=== PATIENT | female | born 1990 | race Asian ===

== ENCOUNTER → 2024-07-12 | Outpatient (CLI) | payer BC, SELFPAY ==
[2024-07-12 12:34] LABS: Absolute Lymphocyte Count 1.33 X10^3/uL (0.83-4.51); Absolute Neutrophil Count 3.2 X10^3/uL (2.0-7.7); Basophil# 0.06 X10^3/uL; Basophil% 1.1 % (0-1); Eosinophil# 0.29 X10^3/uL; Eosinophils% 5.5 % (0-5); Hematocrit 36.2 % (37-47); Lymphocyte # 1.33 X10^3/ul (0.83-4.51); Lymphocyte % 25.4 % (19-41); Mean Corp Hgb Conc 33.1 g/dL (32-36); Mean Corpuscular Hgb 28.9 pg (27.0-32.0); Mean Corpuscular Volume 87.2 fL (81-99); Mean Platelet Vol. 10.1 fl (6.2-12.0); Monocyte# 0.38 X10^3/uL; Monocyte% 7.3 % (0-10); NRBC Flagged by Analyzer 0 % (0-5); Neutrophil # 3.17 X10^3/uL (2.7-7.7); Neutrophil % 60.7 % (47-70); Platelet Count 305 K/mm3 (150-450); RBC Distribution Width CV 12.4 % (11.6-14.6); RBC Distribution Width SD 39.7 fl (35.1-43.9); Red Blood Count 4.15 M/mm3 (4.2-5.4); White Blood Count 5.2 K/mm3 (4.4-11.0)
[2024-07-12 13:43] LABS: ALB/GLOB Ratio 1.3 RATIO (0.9-2.4); AST(SGOT) 17 U/L (<=31); Alanine Aminotransfer ALT/SGPT 10 U/L (<=34); Albumin, Serum 4.1 g/dL (3.5-5.0); Alkaline Phosphatase 62 U/L (35-104); Anion Gap 10 (5-15); BUN 8 mg/dL (4-19); BUN/Creat Ratio 12.3 RATIO (10-20); Calcium,Total 9.5 mg/dL (7.6-11.0); Carbon Dioxide 23.9 mmol/L (21.0-32.0); Chloride 104 mmol/L (98-108); Cholesterol 185 mg/dL (<=200); Creatinine, Serum 0.68 mg/dL (0.70-1.20); EST Glomerular Filtration Rate 116 (>60); Globulin 3.1 g/dL (2.2-4.2); Glucose 90 mg/dL (70-99); High Density Lipoprotein 36 mg/dL; Low Density Lipoprotein Calc. 117 mg/dL; Potassium 4.1 mmol/L (3.3-5.1); Protein, Total 7.2 g/dL (5.9-8.4); Sodium Level 139 mmol/L (133-145); Total Bilirubin 0.31 mg/dL (0.00-1.30); Triglycerides 161 mg/dL; Very Low Density Lipoprotein 32 mg/dL (5-40); cholesterol:hdl ratio screen 5.17
== END | disposition home or self-care (01) ==
LOC: MFPLAB 10:54
PROVIDERS: PCP Family Medicine; Referring Provider Family Medicine; Visit Provider Family Medicine
DX: Z00.00 Encounter for general adult medical examination without abnormal findings (principal); R10.13 Epigastric pain
CPT/HCPCS: 36415; 80053; 80061; 84443; 85025

== ENCOUNTER → 2025-01-01 | Outpatient (CLI) | payer BC, SELFPAY ==
--- OUTSIDE RECORDS SUMMARY | 2025-01-01 12:19 | XMS RPT_ITS | CCD ---
Author Organization [facility] Care Team Providers Care Grain Miller Helper Name Role Phone Unavailable Primary Care Provider Francesca Reynolds MD, Dr. Sanchez Primary Care Provider Rodolfo GAN, Dr. Sanchez Attending Provider Rodolfo GAN, Dr. Sanchez Referring Provider Unavailable Primary Care Provider UnavailDaniel Eldridge MD Primary Care Provider TIMEN, REYNALDO R Attending Unavailable SANGHI, VEDHA Referring Unavailable SANGHI, BRAINDHA Attending Unavailable ASHLEY TOPETE P Attending Unavailable ASHLEY TOPETE P Referring Unavailable ASHLEY TOPETE Referring Unavailable ASHLEY TOPETE Attending Unavailable Daniel Reynolds Primary Care Unavailable Antionette Lakhani Attending Unavailable Rodolfo, Daniel Referring Unavailable Daniel Reynolds Primary Care Unavailable Antionette Coombs Attending Unavailable Daniel Reynolds Referring Unavailable Rodolfo, Daniel Referring Unavailable Rodolfo, Daniel Attending Unavailable Rodolfo, Daniel Primary Care Unavailable Medications Current Medications Medication Drug Class(es) Dates Sig (Normalized) Sig (Original) amitriptyline hydrochloride 10 mg oral tablet (1 source) Tricyclic Antidepressant Start: 09-08-19 take 1 tablet by mouth once daily at bedtime amitriptyline (ELAVIL) 10 mg tablet Take 1 tablet by mouth daily at bedtime. 30 tablet 11 09/07/2024 Active iv contrast (will be provided with radiology test) (1 source) Start: 08-23-19 End: 08-24-19 inject 1 dose intravenously once iv contrast (will be provided with radiology test) Indications: New onset headache , Vision disturbance , Migraine with persistent visual aura , Tinnitus, bilateral , Tingling of face , Pulsatile tinnitus, right ear , Thunderclap headache , Atypical facial pain , Ear pain, bilateral MRI Brain Inject, intravenously, once for 1 dose.No IV access, insert saline lock prior to beginning of sedation, infusion, injection of imaging exam.Discontinue saline lock post exam. If Pt. has a central line or IVAD, may access for administration according to line specific nursing protocol.Once exam is complete flush line and de-access according to line specific nursing protocol in the MR contrast administration guidelines link 1 each 08/22/2024 08/23/2024 Active methylPREDNISolone (5 sources) Corticosteroid Start: 08-23-19 methylPREDNISolone (MEDROL, CONNOR,) 4 mg Dose-Pack Take as directed. 21 tablet 08/22/2024 Active Completed/Discontinued Medications Medication Drug Class(es) Dates Sig (Normalized) Sig (Original) bismuth subsalicylate 262 mg chewable tablet (5 sources) Bismuth Start: 06-21-2024 End: 08-11-2024 take 1 tablet by mouth four times daily bismuth subsalicylate (PEPTO-BISMOL) 262 mg chewable tablet Indications: Helicobacter pylori gastritis Take 1 tablet by mouth four times daily for 14 days. 56 tablet 06/21/2024 08/11/2024 Discontinued (Course of therapy completed) doxycycline hyclate 100 mg oral capsule (2 sources) Tetracycline-class Drug Start: 07-31-2024 End: 08-22-2024 take 1 capsule by mouth every twelve hours doxycycline hyclate (VIBRAMYCIN) 100 mg capsule Take 1 capsule by mouth every 12 hours. 07/31/2024 08/22/2024 Discontinued famotidine 40 mg oral tablet (2 sources) Histamine-2 Receptor Antagonist Start: 06-07-2024 End: 06-21-2024 famotidine (PEPCID) 40 mg tablet 06/07/2024 06/21/2024 Discontinued (Discontinued by Patient) hydrocortisone 25 mg/ml topical cream (2 sources) Corticosteroid Start: 06-07-2024 End: 08-22-2024 hydrocortisone 2.5 % cream 06/07/2024 08/22/2024 Discontinued metroNIDAZOLE 500 mg oral tablet (3 sources) Nitroimidazole Antimicrobial Start: 06-21-2024 End: 07-05-2024 take 1 tablet by mouth four times daily metroNIDAZOLE (FLAGYL) 500 mg tablet Indications: Helicobacter pylori gastritis Take 1 tablet by mouth four times daily for 14 days. 56 tablet 06/21/2024 07/05/2024 omeprazole 40 mg delayed release oral capsule (13 sources) Proton Pump Inhibitor Start: 06-21-2024 End: 08-22-2024 take 1 capsule by mouth twice daily omeprazole (PRILOSEC) 40 mg capsule Indications: gastroesophageal reflux disease Take 1 capsule by mouth two times a day for 14 days. 28 capsule 06/21/2024 08/22/2024 Discontinued Start: 06-15-2024 End: 09-13-2024 take 1 capsule by mouth once daily omeprazole (PRILOSEC) 20 mg capsule Indications: Epigastric pain , Gastroesophageal reflux disease without esophagitis Take 1 capsule by mouth once daily. 90 capsule 06/15/2024 08/22/2024 Discontinued tetracycline hydrochloride 500 mg oral capsule (8 sources) Tetracycline-class Antimicrobial Start: 06-21-2024 End: 08-22-2024 take 1 capsule by mouth four times daily tetracycline (SUMYCIN) 500 mg cap TAKE 1 CAPSULE BY MOUTH 4 TIMES DAILY FOR 14 DAYS 06/21/2024 08/22/2024 Discontinued Start: 06-21-2024 End: 07-05-2024 take 1 tablet by mouth four times daily Tetracycline HCl 500 mg tab Indications: Helicobacter pylori gastritis Take 500 mg by mouth four times daily for 14 days. 56 tablet 06/21/2024 07/05/2024 Problems Active Problems Problem Classification Problem Date Documented Da te Episodic/Chronic Abdominal pain (1 source) Epigastric pain; Translations: [Epigastric pain] 06-15-2024 Episodic Blindness and vision defects (16 sources) Visual disturbance; Translations: [Unspecified visual disturbance] Onset: 08-22-2024 Episodic Esophageal disorders (1 source) Gastroesophageal reflux disease without esophagitis; Translations: [Gastro-esophageal reflux disease without esophagitis] 06-15-2024 Chronic Gastrointestinal hemorrhage (1 source) Blood-tinged feces; Translations: [Melena] 06-15-2024 Episodic Headache; including migraine (17 sources) Migraine variants; Translations: [Other migraine, not intractable, without status migrainosus] Onset: 5 08-11-2024 Chronic Headache; including migraine (20 sources) Headache; Translations: [Thunderclap headache] Onset: 5 08-22-2024 Episodic Headache; including migraine (1 source) Headache; including migraine; Translations: [New onset headache] Onset: Other ear and sense organ disorders (3 sources) Referred otalgia of right ear; Translations: [Otalgia, right ear] 08-11-2024 Episodic Other ear and sense organ disorders (2 sources) Referred otalgia of left ear; Translations: [Otalgia, left ear] 08-11-2024 Episodic Other ear and sense organ disorders (2 sources) Tinnitus of right ear; Translations: [Tinnitus, right ear] 08-11-2024 Episodic Other ear and sense organ disorders (13 sources) Bilateral tinnitus; Translations: [Tinnitus, bilateral] Onset: 5 08-22-2024 Episodic Other ear and sense organ disorders (13 sources) Tinnitus of vascular origin; Translations: [Pulsatile tinnitus, right ear] Onset: 5 08-22-2024 Episodic Other ear and sense organ disorders (8 sources) Bilateral earache; Translations: [Otalgia, bilateral] 08-22-2024 Episodic Other ear and sense organ disorders (1 source) Pulsatile tinnitus, right ear; Translations: [Pulsatile tinnitus, right ear] Onset: 5 Episodic Other ear and sense organ disorders (1 source) Tinnitus, bilateral; Translations: [Tinnitus, bilateral] Onset: Episodic Other ear and sense organ disorders (1 source) Otalgia, bilateral; Translations: [Ear pain, bilateral] Onset: Episodic Other nervous system disorders (13 sources) Pins and needles; Translations: [Paresthesia of skin] Onset: 5 08-22-2024 Episodic Other nervous system disorders (8 sources) Atypical facial pain; Translations: [Atypical facial pain] 08-22-2024 Episodic Other nervous system disorders (1 source) Paresthesia of skin; Translations: [Tingling of face] Onset: Episodic Other nervous system disorders (1 source) Atypical facial pain; Translations: [Atypical facial pain] Onset: Episodic Past or Other Problems Problem Classification Problem Date Documented Da te Episodic/Chronic Bacterial infection; unspecified site (1 source) Helicobacter pylori [H. pylori] as the cause of diseases classified elsewhere; Translations: [Helicobacter pylori gastritis] Onset: 06-22-2024 Episodic Gastritis and duodenitis (2 sources) Helicobacter pylori-associated gastritis; Translations: [Gastritis, unspecified, without bleeding] Onset: 06-22-2024 06-21-2024 Episodic Other ear and sense organ disorders (1 source) Otalgia, right ear; Translations: [Referred otalgia of right ear] Onset: 08-11-2024 Episodic Other ear and sense organ disorders (1 source) Tinnitus, right ear; Translations: [Tinnitus, right ear] Onset: 08-11-2024 Episodic Other ear and sense organ disorders (1 source) Otalgia, left ear; Translations: [Referred otalgia of left ear] Onset: 08-11-2024 Episodic Other screening for suspected conditions (not mental disorders or infectious disease) (2 sources) Possible ; Translations: [Encounter for test, result unknown] Onset: 06-22-2024 06-21-2024 Episodic Results Test Name Value Interpretation Reference Range Facility Office Visit Reporton 2024 Office Visit Report [facility] [address] [place] [id number] OFFICE VISIT Date of Service: 12/22/24 MR#: [id number] Acct: [id number] Patient: CYDNEY SULLIVAN Rep #: [id number] : 1990 Provider: VALERIE Jean Baptiste ams Age/Sex: 34/F Location[place] [facility] [place] Status: Signed Intake Vital Signs 12/22/24 09:09 Weight: 136 lb 4 oz BP 102/70 Intake Visit Reasons: PNOB Vitals Education Allergies No Known Allergies Allergy (Unverified 12/22/24 08:16) Medications ???Medication ???Instructions ???Recorded ???Confirmed ???Type docosahexaenoic acid 200 mg mg PO 12/22/24 12/22/24 History capsule ( DHA) magnesium gluconate 30 mg tablet 30 mg PO QDAY 12/22/24 12/22/24 Hi story pyridoxine (vitamin B6) 10 mg 10 mg PO QDAY 12/22/24 12/22/24 Hi story tablet Is last menstrual period known: Yes Post menopausal: No Patient : Yes Nurse's Note: Pt here for secondary amenorrhea. Vitals WNL. PNOB questions completed. Problem list, allergies, and medications updated. First trimester ACOG education completed. Assessment and Plan Assessment and Plan Orders: Orders CBC W/Diff, Automated 01/01/25 Z34.90 - Encounter for supervision of normal , unspecified, unspecified trimester Type Screen 01/01/25 Z34.90 - Encounter for supervision of normal , unspecified, unspecified trimester Rubella IgG 01/01/25 Z34.90 - Encounter for supervision of normal , unspecified, unspecified trimester Hepatitis C Antibody 01/01/25 Z34.90 - Encounter for supervision of normal , unspecified, unspecified trimester Hepatitis B Surface Antigen 01/01/25 Z34.90 - Encounter for supervision of normal , unspecified, unspecified trimester Culture, Urine 01/01/25 Z34.90 - Encounter for supervision of normal , unspecified, unspecified trimester Syphilis Antibodies 01/01/25 Z34.90 - Encounter for supervision of normal , unspecified, unspecified trimester Chlamydia/GC KOSTA aptima 01/01/25 Z34.90 - Encounter for supervision of normal , unspecified, unspecified trimester HIV 01/01/25 Z34.90 - Encounter for supervision of normal , unspecified, unspecified trimester PAP IG HPV APTIMA 16/18,45 12/22/24 12/26/24 1228 Date Antionette MORRISON Cosignlaverne Signature: Date (if applicable) CC: Normal [facility] CNOVon 11-06-2024 CNOV Office Visit ([facility] ) CYDNEY SULLIVAN ([id number]) 1990 F Date Time Provider Department 11/06/24 11:00 AM ASHLEY TOPETE [facility] During your visit today, we recorded the following information about you: Pulse Respiration Blood pressure Weight 96/minute 18/minute 110/69 61.8 kg Height 1.626 m Ashley Topete, DO 11/06/2024 12:42 PM Signed [facility] - Follow-up Visit SSESSMENT: 34 year old female with history significant for persistent visual 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 She describes no other IIH type symptoms (denies pulsatile tinnitus, TVOs, or ongoing headaches) and I see no findings suggestive of IIH on review of her MRI, but we may consider checking opening pressure pending neuro-ophthalmology evaluation for her visual disturbances. PLAN: (Please see typed patient instructions for detailed instructions) ---> Preventive Treatment: -Lamictal trial. -Continue Magnesium. ---> Consult to neuro-ophthalmology for her complex visual disturbances. 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 ---> Discussed potential for future LP to check opening pressure, although overall symptoms and MRI findings do not suggest IIH. We may still consider this to definitively exclude it though. ---> Follow-up: 3 months. --------- Last visit: 08/22/24 Interval Headache Hx: Still has visual disturbances (shimmering) all the time. Sometimes a couple lines, sometimes a few spots. Has been weaning off Gabapentin. No help and had some swelling. Took 300 mg tid yesterday, none today. New Labs/Imaging: Impression IMPRESSION: No acute intracranial abnormality. No mass or pathologic enhancement. Patent intracranial cerebral arterial circulation. No high-grade flow-limiting luminal stenosis. Persistent primitive left trigeminal artery. Patent dural venous sinuses by [id number] MRV. Wireless Technician: LASHAY Transcribe Date/Time: 2024 9:53A Dictated by : PIEDAD DILLARD DO This examination was interpreted and the report reviewed and electronically signed by: PIEDAD DILLARD DO on 2024 10:19AM EST Results-Findings * * *Final Report* * * DATE OF EXAM: 2024 9:49AM [facility] 0295 - MRI BRAIN WO/W IVCON / PROCEDURE REASON: multiple diagnoses * * * * Physician Interpretation * * * * EXAMINATION: MRA BRAIN WO IVCON, MRV BRAIN WO IVCON, MRI BRAIN WO/W IVCON CLINICAL HISTORY: New onset headache. Visual disturbances. Tinnitus. Facial tingling. Facial pain. TECHNIQUE: Routine MRI brain protocol without and with intravenous contrast including diffusion and gradient echo images. Intracranial 3D [id number] MRA with post-processing performed at the modality and 2D multiplanar and 3D maximum intensity projections were created, reviewed and archived. Brain MRV without intravenous contrast Contrast: IV administration of 6 ml of Elucirem COMPARISON: None. RESULT: BRAIN: Acute Change: There is no evidence of restricted diffusion to suggest an acute infarct. Hemorrhage: No evidence of prior parenchymal hemorrhage on the susceptibility weighted images. Mass Lesion/ Mass Effect: No evidence of an intracranial mass or extra-axial fluid collection. No pathologic intracranial enhancement. No significant mass effect. Chronic Change: The white matter is within normal limits of signal intensity for age. Parenchyma: No significant volume loss for age. The brain parenchyma is otherwise within normal limits of signal intensity and morphology. Ventricles: Normal caliber and morphology. Skull Base: Hypothalamic and pituitary region are grossly normal. Craniocervical junction is normal. No significant marrow replacement process. Vasculature: Major intracranial arterial structures, and dural venous sinuses show typical flow void, suggesting patency by spin echo criteria. Other: The visualized paranasal sinuses and mastoid air cells are clear. The orbits and extracranial soft tissues are unremarkable. INTRACRANIAL MRA: Intracranial ICAs are normal in course and caliber. No high-grade luminal stenosis. Left A1 segment is slightly dominant in luminal caliber in both A1 segments are patent imaged ACAs are patent. MCAs are normal in course and caliber without proximal large vessel occlusion or high-grade luminal stenosis. Intradural vertebral arteries and basilar artery are patent. Persistent primitive left trigeminal artery. senior treasury analyst are patent without high-grade luminal stenosis. V (more content not included)... Normal [facility] CNPNon 10-31-2024 CNPN Telephone ([facility]) CYDNEY SULLIVAN ([id number]) 1990 F Date Time Provider Department 10/31/24 ASHLEY TOPETE [facility] During your visit today, we recorded the following information about you: Linda Logan RN 10/31/2024 3:29 PM Signed Pt calling in - she is currently at goal of gabapentin, 600 mg TID. She states that she has been experiencing nerve pain in her feet, palms, fingers and arms with this dosage and would like to wean down or off medication. She is inquiring on possibly moving to 100 mg tablets or different medication for treatment. She does have f/u scheduled for 11/06. Please advise. Thank you! Ashley Topete, 11/09/2024 5:06 PM Signed We already adjusted the plan, closing note. Allergies As of Date: 10/31/2024 (Not on File) Date Reviewed: 08/22/2024 Reviewed by: Marely Palm MA - Fully Assessed Prescriptions as of 11/09/2024 - lamoTRIgine (LAMICTAL) 100 mg tablet Take 1 tablet by mouth daily at bedtime. Start after you reach dose after slowly increasing. - lamoTRIgine (LAMICTAL) 25 mg tablet 1 tab every other night x 2 wks. Then 1 tab qhs x 2 wks. Then 2 tabs qhs x 1 wk. Then 3 tabs qhs x 1 week. Then 4 tabs qhs. - methylPREDNISolone (MEDROL, CONNOR,) 4 mg Dose-Pack Take as directed. Problem List As Of Date 10/31/2024 Noted Resolved New onset headache [R51.9] 08/22/2024 Migraine with persistent visual aura [G43.509] 08/22/2024 Vision disturbance [H53.9] 08/22/2024 Tinnitus, bilateral [H93.13] 08/22/2024 Tingling of face [R20.2] 08/22/2024 Pulsatile tinnitus, right ear [H93.A1] 08/22/2024 Encounter Status:Closed by LINDA LOGAN on 11/06/24 Normal [facility] MR Brain WO and W contrast I Von 2024 * * *Final Report* * * DATE OF EXAM: 2024 9:49AM [facility] 0295 - MRI BRAIN WO/W IVCON / PROCEDURE REASON: multiple diagnoses * * * * Physician Interpretation * * * * EXAMINATION: MRA BRAIN WO IVCON, MRV BRAIN WO IVCON, MRI BRAIN WO/W IVCON CLINICAL HISTORY: New onset headache. Visual disturbances. Tinnitus. Facial tingling. Facial pain. TECHNIQUE: Routine MRI brain protocol without and with intravenous contrast including diffusion and gradient echo images. Intracranial 3D [id number] MRA with post-processing performed at the modality and 2D multiplanar and 3D maximum intensity projections were created, reviewed and archived. Brain MRV without intravenous contrast Contrast: IV administration of 6 ml of Elucirem COMPARISON: None. RESULT: BRAIN: Acute Change: There is no evidence of restricted diffusion to suggest an acute infarct. Hemorrhage: No evidence of prior parenchymal hemorrhage on the susceptibility weighted images. Mass Lesion/ Mass Effect: No evidence of an intracranial mass or extra-axial fluid collection. No pathologic intracranial enhancement. No significant mass effect. Chronic Change: The white matter is within normal limits of signal intensity for age. Parenchyma: No significant volume loss for age. The brain parenchyma is otherwise within normal limits of signal intensity and morphology. Ventricles: Normal caliber and morphology. Skull Base: Hypothalamic and pituitary region are grossly normal. Craniocervical junction is normal. No significant marrow replacement process. Vasculature: Major intracranial arterial structures, and dural venous sinuses show typical flow void, suggesting patency by spin echo criteria. Other: The visualized paranasal sinuses and mastoid air cells are clear. The orbits and extracranial soft tissues are unremarkable. INTRACRANIAL MRA: Intracranial ICAs are normal in course and caliber. No high-grade luminal stenosis. Left A1 segment is slightly dominant in luminal caliber in both A1 segments are patent imaged ACAs are patent. MCAs are normal in course and caliber without proximal large vessel occlusion or high-grade luminal stenosis. Intradural vertebral arteries and basilar artery are patent. Persistent primitive left trigeminal artery. senior treasury analyst are patent without high-grade luminal stenosis. VENOGRAM: Patency: The superior sagittal sinus, bilateral internal cerebral veins, vein of Bernard, straight sinus, bilateral transverse and sigmoid sinuses, and bilateral jugular bulbs demonstrate normal intraluminal flow-related signal without tubular or occlusive filling defect to suggest acute dural venous sinus thrombosis. Dominance: Slight dominance of the left transverse and sigmoid sinuses. The right transverse and sigmoid sinuses are small in caliber on a developmental basis. DIVISION OF RADIOLOGY Provider, [facility] - 2024 * * *Final Report* * * DATE OF EXAM: 2024 9:49AM [facility] 0295 - MRI BRAIN WO/W IVCON / PROCEDURE REASON: multiple diagnoses * * * * Physician Interpretation * * * * EXAMINATION: MRA BRAIN WO IVCON, MRV BRAIN WO IVCON, MRI BRAIN WO/W IVCON CLINICAL HISTORY: New onset headache. Visual disturbances. Tinnitus. Facial tingling. Facial pain. TECHNIQUE: Routine MRI brain protocol without and with intravenous contrast including diffusion and gradient echo images. Intracranial 3D [id number]-[id number] MRA with post-processing performed at the modality and 2D multiplanar and 3D maximum intensity projections were created, reviewed and archived. Brain MRV without intravenous contrast Contrast: IV administration of 6 ml of Elucirem COMPARISON: None. RESULT: BRAIN: Acute Change: There is no evidence of restricted diffusion to suggest an acute infarct. Hemorrhage: No evidence of prior parenchymal hemorrhage on the susceptibility weighted images. Mass Lesion/ Mass Effect: No evidence of an intracranial mass or extra-axial fluid collection. No pathologic intracranial enhancement. No significant mass effect. Chronic Change: The white matter is within normal limits of signal intensity for age. Parenchyma: No significant volume loss for age. The brain parenchyma is otherwise within normal limits of signal intensity and morphology. Ventricles: Normal caliber and morphology. Skull Base: Hypothalamic and pituitary region are grossly normal. Craniocervical junction is normal. No significant marrow replacement process. Vasculature: Major intracranial arterial structures, and dural venous sinuses show typical flow void, suggesting patency by spin echo criteria. Other: The visualized paranasal sinuses and mastoid air cells are clear. The orbits and extracranial soft tissues are unremarkable. INTRACRANIAL MRA: Intracranial ICAs are normal in course and caliber. No high-grade luminal stenosis. Left A1 segment is slightly dominant in luminal caliber in both A1 segments are patent imaged ACAs are patent. MCAs are normal in course and caliber without proximal large vessel occlusion or high-grade luminal stenosis. Intradural vertebral arteries and basilar artery are patent. Persistent primitive left trigeminal artery. senior treasury analyst are patent without high-grade luminal stenosis. VENOGRAM: Patency: The superior sagittal sinus, bilateral internal cerebral veins, vein of Bernard, straight sinus, bilateral transverse and sigmoid sinuses, and bilateral jugular bulbs demonstrate normal intraluminal flow-related signal without tubular or occlusive filling defect to suggest acute dural venous sinus thrombosis. Dominance: Slight dominance of the left transverse and sigmoid sinuses. The right transverse and sigmoid sinuses are small in caliber on a developmental basis. IMPRESSION IMPRESSION: No acute intracranial abnormality. No mass or pathologic enhancement. Patent intracranial cerebral arterial circulation. No high-grade flow-limiting luminal stenosis. Persistent primitive left trigeminal artery. Patent dural venous sinuses by [id number] MRV. Wireless Technician: LASHAY Transcribe Date/Time: 2024 9:53A Dictated by : PIEDAD DILLARD DO This examination was interpreted and the report reviewed and electronically signed by: PIEDAD DILLARD DO on 2024 10:19AM [facility] MRA BRAIN WO IVCONon 07-21-2 025 MRA BRAIN WO IVCON * * *Final Report* * * DATE OF EXAM: 2024 9:49AM [facility] 0272 - MRA BRAIN WO IVCON / PROCEDURE REASON: multiple diagnoses * * * * Physician Interpretation * * * * EXAMINATION: MRA BRAIN WO IVCON, MRV BRAIN WO IVCON, MRI BRAIN WO/W IVCON CLINICAL HISTORY: New onset headache. Visual disturbances. Tinnitus. Facial tingling. Facial pain. TECHNIQUE: Routine MRI brain protocol without and with intravenous contrast including diffusion and gradient echo images. Intracranial 3D llnm-kb-bmpcpy MRA with post-processing performed at the modality and 2D multiplanar and 3D maximum intensity projections were created, reviewed and archived. Brain MRV without intravenous contrast Contrast: IV administration of 6 ml of Elucirem COMPARISON: None. RESULT: BRAIN: Acute Change: There is no evidence of restricted diffusion to suggest an acute infarct. Hemorrhage: No evidence of prior parenchymal hemorrhage on the susceptibility weighted images. Mass Lesion/ Mass Effect: No evidence of an intracranial mass or extra-axial fluid collection. No pathologic intracranial enhancement. No significant mass effect. Chronic Change: The white matter is within normal limits of signal intensity for age. Parenchyma: No significant volume loss for age. The brain parenchyma is otherwise within normal limits of signal intensity and morphology. Ventricles: Normal caliber and morphology. Skull Base: Hypothalamic and pituitary region are grossly normal. Craniocervical junction is normal. No significant marrow replacement process. Vasculature: Major intracranial arterial structures, and dural venous sinuses show typical flow void, suggesting patency by spin echo criteria. Other: The visualized paranasal sinuses and mastoid air cells are clear. The orbits and extracranial soft tissues are unremarkable. INTRACRANIAL MRA: Intracranial ICAs are normal in course and caliber. No high-grade luminal stenosis. Left A1 segment is slightly dominant in luminal caliber in both A1 segments are patent imaged ACAs are patent. MCAs are normal in course and caliber without proximal large vessel occlusion or high-grade luminal stenosis. Intradural vertebral arteries and basilar artery are patent. Persistent primitive left trigeminal artery. senior treasury analyst are patent without high-grade luminal stenosis. VENOGRAM: Patency: The superior sagittal sinus, bilateral internal cerebral veins, vein of Bernard, straight sinus, bilateral transverse and sigmoid sinuses, and bilateral jugular bulbs demonstrate normal intraluminal flow-related signal without tubular or occlusive filling defect to suggest acute dural venous sinus thrombosis. Dominance: Slight dominance of the left transverse and sigmoid sinuses. The right transverse and sigmoid sinuses are small in caliber on a developmental basis. IMPRESSION: No acute intracranial abnormality. No mass or pathologic enhancement. Patent intracranial cerebral arterial circulation. No high-grade flow-limiting luminal stenosis. 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 Wireless Technician: LASHAY Transcribe Date/Time: 2024 9:53A Dictated by : PIEDAD KICZEK, DO This examination was interpreted and the report reviewed and electronically signed by: PIEDAD DILLARD DO on 2024 10:19AM EST [id number] Normal [facility] MRA Head veins WO contraston 2024 * * *Final Report* * * DATE OF EXAM: 2024 9:49AM [facility] 0335 - MRV BRAIN WO IVCON / PROCEDURE REASON: multiple diagnoses * * * * Physician Interpretation * * * * EXAMINATION: MRA BRAIN WO IVCON, MRV BRAIN WO IVCON, MRI BRAIN WO/W IVCON CLINICAL HISTORY: New onset headache. Visual disturbances. Tinnitus. Facial tingling. Facial pain. TECHNIQUE: Routine MRI brain protocol without and with intravenous contrast including diffusion and gradient echo images. Intracranial 3D [id number]-[id number] MRA with post-processing performed at the modality and 2D multiplanar and 3D maximum intensity projections were created, reviewed and archived. Brain MRV without intravenous contrast Contrast: IV administration of 6 ml of Elucirem COMPARISON: None. RESULT: BRAIN: Acute Change: There is no evidence of restricted diffusion to suggest an acute infarct. Hemorrhage: No evidence of prior parenchymal hemorrhage on the susceptibility weighted images. Mass Lesion/ Mass Effect: No evidence of an intracranial mass or extra-axial fluid collection. No pathologic intracranial enhancement. No significant mass effect. Chronic Change: The white matter is within normal limits of signal intensity for age. Parenchyma: No significant volume loss for age. The brain parenchyma is otherwise within normal limits of signal intensity and morphology. Ventricles: Normal caliber and morphology. Skull Base: Hypothalamic and pituitary region are grossly normal. Craniocervical junction is normal. No significant marrow replacement process. Vasculature: Major intracranial arterial structures, and dural venous sinuses show typical flow void, suggesting patency by spin echo criteria. Other: The visualized paranasal sinuses and mastoid air cells are clear. The orbits and extracranial soft tissues are unremarkable. INTRACRANIAL MRA: Intracranial ICAs are normal in course and caliber. No high-grade luminal stenosis. Left A1 segment is slightly dominant in luminal caliber in both A1 segments are patent imaged ACAs are patent. MCAs are normal in course and caliber without proximal large vessel occlusion or high-grade luminal stenosis. Intradural vertebral arteries and basilar artery are patent. Persistent primitive left trigeminal artery. senior treasury analyst are patent without high-grade luminal stenosis. VENOGRAM: Patency: The superior sagittal sinus, bilateral internal cerebral veins, vein of Bernard, straight sinus, bilateral transverse and sigmoid sinuses, and bilateral jugular bulbs demonstrate normal intraluminal flow-related signal without tubular or occlusive filling defect to suggest acute dural venous sinus thrombosis. Dominance: Slight dominance of the left transverse and sigmoid sinuses. The right transverse and sigmoid sinuses are small in caliber on a developmental basis. DIVISION OF RADIOLOGY Provider, [facility] * * *Final Report* * * DATE OF EXAM: 2024 9:49AM [facility] 0335 - MRV BRAIN WO IVCON / PROCEDURE REASON: multiple diagnoses * * * * Physician Interpretation * * * * EXAMINATION: MRA BRAIN WO IVCON, MRV BRAIN WO IVCON, MRI BRAIN WO/W IVCON CLINICAL HISTORY: New onset headache. Visual disturbances. Tinnitus. Facial tingling. Facial pain. TECHNIQUE: Routine MRI brain protocol without and with intravenous contrast including diffusion and gradient echo images. Intracranial 3D bbyt-ci-amybqp MRA with post-processing performed at the modality and 2D multiplanar and 3D maximum intensity projections were created, reviewed and archived. Brain MRV without intravenous contrast Contrast: IV administration of 6 ml of Elucirem COMPARISON: None. RESULT: BRAIN: Acute Change: There is no evidence of restricted diffusion to suggest an acute infarct. Hemorrhage: No evidence of prior parenchymal hemorrhage on the susceptibility weighted images. Mass Lesion/ Mass Effect: No evidence of an intracranial mass or extra-axial fluid collection. No pathologic intracranial enhancement. No significant mass effect. Chronic Change: The white matter is within normal limits of signal intensity for age. Parenchyma: No significant volume loss for age. The brain parenchyma is otherwise within normal limits of signal intensity and morphology. Ventricles: Normal caliber and morphology. Skull Base: Hypothalamic and pituitary region are grossly normal. Craniocervical junction is normal. No significant marrow replacement process. Vasculature: Major intracranial arterial structures, and dural venous sinuses show typical flow void, suggesting patency by spin echo criteria. Other: The visualized paranasal sinuses and mastoid air cells are clear. The orbits and extracranial soft tissues are unremarkable. INTRACRANIAL MRA: Intracranial ICAs are normal in course and caliber. No high-grade luminal stenosis. Left A1 segment is slightly dominant in luminal caliber in both A1 segments are patent imaged ACAs are patent. MCAs are normal in course and caliber without proximal large vessel occlusion or high-grade luminal stenosis. Intradural vertebral arteries and basilar artery are patent. Persistent primitive left trigeminal artery. senior treasury analyst are patent without high-grade luminal stenosis. VENOGRAM: Patency: The superior sagittal sinus, bilateral internal cerebral veins, vein of Bernard, straight sinus, bilateral transverse and sigmoid sinuses, and bilateral jugular bulbs demonstrate normal intraluminal flow-related signal without tubular or occlusive filling defect to suggest acute dural venous sinus thrombosis. Dominance: Slight dominance of the left transverse and sigmoid sinuses. The right transverse and sigmoid sinuses are small in caliber on a developmental basis. IMPRESSION IMPRESSION: No acute intracranial abnormality. No mass or pathologic enhancement. Patent intracranial cerebral arterial circulation. No high-grade flow-limiting luminal stenosis. 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 Wireless Technician: LASHAY Transcribe Date/Time: 2024 9:53A Dictated by : PIEDAD DILLARD DO This examination was interpreted and the report reviewed and electronically signed by: PIEDAD DILLARD DO on 2024 10:19AM EST [facility] MRA Head vessels WO contrast on 2024 * * *Final Report* * * DATE OF EXAM: 2024 9:49AM [facility] 0272 - MRA BRAIN WO IVCON / PROCEDURE REASON: multiple diagnoses * * * * Physician Interpretation * * * * EXAMINATION: MRA BRAIN WO IVCON, MRV BRAIN WO IVCON, MRI BRAIN WO/W IVCON CLINICAL HISTORY: New onset headache. Visual disturbances. Tinnitus. Facial tingling. Facial pain. TECHNIQUE: Routine MRI brain protocol without and with intravenous contrast including diffusion and gradient echo images. Intracranial 3D aast-jk-szfklr MRA with post-processing performed at the modality and 2D multiplanar and 3D maximum intensity projections were created, reviewed and archived. Brain MRV without intravenous contrast Contrast: IV administration of 6 ml of Elucirem COMPARISON: None. RESULT: BRAIN: Acute Change: There is no evidence of restricted diffusion to suggest an acute infarct. Hemorrhage: No evidence of prior parenchymal hemorrhage on the susceptibility weighted images. Mass Lesion/ Mass Effect: No evidence of an intracranial mass or extra-axial fluid collection. No pathologic intracranial enhancement. No significant mass effect. Chronic Change: The white matter is within normal limits of signal intensity for age. Parenchyma: No significant volume loss for age. The brain parenchyma is otherwise within normal limits of signal intensity and morphology. Ventricles: Normal caliber and morphology. Skull Base: Hypothalamic and pituitary region are grossly normal. Craniocervical junction is normal. No significant marrow replacement process. Vasculature: Major intracranial arterial structures, and dural venous sinuses show typical flow void, suggesting patency by spin echo criteria. Other: The visualized paranasal sinuses and mastoid air cells are clear. The orbits and extracranial soft tissues are unremarkable. INTRACRANIAL MRA: Intracranial ICAs are normal in course and caliber. No high-grade luminal stenosis. Left A1 segment is slightly dominant in luminal caliber in both A1 segments are patent imaged ACAs are patent. MCAs are normal in course and caliber without proximal large vessel occlusion or high-grade luminal stenosis. Intradural vertebral arteries and basilar artery are patent. Persistent primitive left trigeminal artery. senior treasury analyst are patent without high-grade luminal stenosis. VENOGRAM: Patency: The superior sagittal sinus, bilateral internal cerebral veins, vein of Bernard, straight sinus, bilateral transverse and sigmoid sinuses, and bilateral jugular bulbs demonstrate normal intraluminal flow-related signal without tubular or occlusive filling defect to suggest acute dural venous sinus thrombosis. Dominance: Slight dominance of the left transverse and sigmoid sinuses. The right transverse and sigmoid sinuses are small in caliber on a developmental basis. DIVISION OF RADIOLOGY Provider, [facility] - 2024 * * *Final Report* * * DATE OF EXAM: 2024 9:49AM [facility] 0272 - MRA BRAIN WO IVCON / PROCEDURE REASON: multiple diagnoses * * * * Physician Interpretation * * * * EXAMINATION: MRA BRAIN WO IVCON, MRV BRAIN WO IVCON, MRI BRAIN WO/W IVCON CLINICAL HISTORY: New onset headache. Visual disturbances. Tinnitus. Facial tingling. Facial pain. TECHNIQUE: Routine MRI brain protocol without and with intravenous contrast including diffusion and gradient echo images. Intracranial 3D whhv-ql-sktqbp MRA with post-processing performed at the modality and 2D multiplanar and 3D maximum intensity projections were created, reviewed and archived. Brain MRV without intravenous contrast Contrast: IV administration of 6 ml of Elucirem COMPARISON: None. RESULT: BRAIN: Acute Change: There is no evidence of restricted diffusion to suggest an acute infarct. Hemorrhage: No evidence of prior parenchymal hemorrhage on the susceptibility weighted images. Mass Lesion/ Mass Effect: No evidence of an intracranial mass or extra-axial fluid collection. No pathologic intracranial enhancement. No significant mass effect. Chronic Change: The white matter is within normal limits of signal intensity for age. Parenchyma: No significant volume loss for age. The brain parenchyma is otherwise within normal limits of signal intensity and morphology. Ventricles: Normal caliber and morphology. Skull Base: Hypothalamic and pituitary region are grossly normal. Craniocervical junction is normal. No significant marrow replacement process. Vasculature: Major intracranial arterial structures, and dural venous sinuses show typical flow void, suggesting patency by spin echo criteria. Other: The visualized paranasal sinuses and mastoid air cells are clear. The orbits and extracranial soft tissues are unremarkable. INTRACRANIAL MRA: Intracranial ICAs are normal in course and caliber. No high-grade luminal stenosis. Left A1 segment is slightly dominant in luminal caliber in both A1 segments are patent imaged ACAs are patent. MCAs are normal in course and caliber without proximal large vessel occlusion or high-grade luminal stenosis. Intradural vertebral arteries and basilar artery are patent. Persistent primitive left trigeminal artery. senior treasury analyst are patent without high-grade luminal stenosis. VENOGRAM: Patency: The superior sagittal sinus, bilateral internal cerebral veins, vein of Bernard, straight sinus, bilateral transverse and sigmoid sinuses, and bilateral jugular bulbs demonstrate normal intraluminal flow-related signal without tubular or occlusive filling defect to suggest acute dural venous sinus thrombosis. Dominance: Slight dominance of the left transverse and sigmoid sinuses. The right transverse and sigmoid sinuses are small in caliber on a developmental basis. IMPRESSION IMPRESSION: No acute intracranial abnormality. No mass or pathologic enhancement. Patent intracranial cerebral arterial circulation. No high-grade flow-limiting luminal stenosis. 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 Wireless Technician: PSCB Transcribe Date/Time: 2024 9:53A Dictated by : PIEDAD DILLARD DO This examination was interpreted and the report reviewed and electronically signed by: PIEDAD DILLARD DO on 2024 10:19AM [facility] MRI BRAIN WO/W IVCONon 09-04 MRI BRAIN WO/W IVCON * * *Final Report* * * DATE OF EXAM: 2024 9:49AM [facility] 0295 - MRI BRAIN WO/W IVCON / PROCEDURE REASON: multiple diagnoses * * * * Physician Interpretation * * * * EXAMINATION: MRA BRAIN WO IVCON, MRV BRAIN WO IVCON, MRI BRAIN WO/W IVCON CLINICAL HISTORY: New onset headache. Visual disturbances. Tinnitus. Facial tingling. Facial pain. TECHNIQUE: Routine MRI brain protocol without and with intravenous contrast including diffusion and gradient echo images. Intracranial 3D pfmv-hr-fzluqd MRA with post-processing performed at the modality and 2D multiplanar and 3D maximum intensity projections were created, reviewed and archived. Brain MRV without intravenous contrast Contrast: IV administration of 6 ml of Elucirem COMPARISON: None. RESULT: BRAIN: Acute Change: There is no evidence of restricted diffusion to suggest an acute infarct. Hemorrhage: No evidence of prior parenchymal hemorrhage on the susceptibility weighted images. Mass Lesion/ Mass Effect: No evidence of an intracranial mass or extra-axial fluid collection. No pathologic intracranial enhancement. No significant mass effect. Chronic Change: The white matter is within normal limits of signal intensity for age. Parenchyma: No significant volume loss for age. The brain parenchyma is otherwise within normal limits of signal intensity and morphology. Ventricles: Normal caliber and morphology. Skull Base: Hypothalamic and pituitary region are grossly normal. Craniocervical junction is normal. No significant marrow replacement process. Vasculature: Major intracranial arterial structures, and dural venous sinuses show typical flow void, suggesting patency by spin echo criteria. Other: The visualized paranasal sinuses and mastoid air cells are clear. The orbits and extracranial soft tissues are unremarkable. INTRACRANIAL MRA: Intracranial ICAs are normal in course and caliber. No high-grade luminal stenosis. Left A1 segment is slightly dominant in luminal caliber in both A1 segments are patent imaged ACAs are patent. MCAs are normal in course and caliber without proximal large vessel occlusion or high-grade luminal stenosis. Intradural vertebral arteries and basilar artery are patent. Persistent primitive left trigeminal artery. senior treasury analyst are patent without high-grade luminal stenosis. VENOGRAM: Patency: The superior sagittal sinus, bilateral internal cerebral veins, vein of Bernard, straight sinus, bilateral transverse and sigmoid sinuses, and bilateral jugular bulbs demonstrate normal intraluminal flow-related signal without tubular or occlusive filling defect to suggest acute dural venous sinus thrombosis. Dominance: Slight dominance of the left transverse and sigmoid sinuses. The right transverse and sigmoid sinuses are small in caliber on a developmental basis. IMPRESSION: No acute intracranial abnormality. No mass or pathologic enhancement. Patent intracranial cerebral arterial circulation. No high-grade flow-limiting luminal stenosis. 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 Wireless Technician: LASHAY Transcribe Date/Time: 2024 9:53A Dictated by : PIEDAD DILLARD DO This examination was interpreted and the report reviewed and electronically signed by: PIEDAD DILLARD DO on 2024 10:19AM EST [id number] Normal [facility] MRV BRAIN WO IVCONon 025 MRV BRAIN WO IVCON * * *Final Report* * * DATE OF EXAM: 2024 9:49AM [facility] 0335 - MRV BRAIN WO IVCON / PROCEDURE REASON: multiple diagnoses * * * * Physician Interpretation * * * * EXAMINATION: MRA BRAIN WO IVCON, MRV BRAIN WO IVCON, MRI BRAIN WO/W IVCON CLINICAL HISTORY: New onset headache. Visual disturbances. Tinnitus. Facial tingling. Facial pain. TECHNIQUE: Routine MRI brain protocol without and with intravenous contrast including diffusion and gradient echo images. Intracranial 3D azuv-jz-wftmns MRA with post-processing performed at the modality and 2D multiplanar and 3D maximum intensity projections were created, reviewed and archived. Brain MRV without intravenous contrast Contrast: IV administration of 6 ml of Elucirem COMPARISON: None. RESULT: BRAIN: Acute Change: There is no evidence of restricted diffusion to suggest an acute infarct. Hemorrhage: No evidence of prior parenchymal hemorrhage on the susceptibility weighted images. Mass Lesion/ Mass Effect: No evidence of an intracranial mass or extra-axial fluid collection. No pathologic intracranial enhancement. No significant mass effect. Chronic Change: The white matter is within normal limits of signal intensity for age. Parenchyma: No significant volume loss for age. The brain parenchyma is otherwise within normal limits of signal intensity and morphology. Ventricles: Normal caliber and morphology. Skull Base: Hypothalamic and pituitary region are grossly normal. Craniocervical junction is normal. No significant marrow replacement process. Vasculature: Major intracranial arterial structures, and dural venous sinuses show typical flow void, suggesting patency by spin echo criteria. Other: The visualized paranasal sinuses and mastoid air cells are clear. The orbits and extracranial soft tissues are unremarkable. INTRACRANIAL MRA: Intracranial ICAs are normal in course and caliber. No high-grade luminal stenosis. Left A1 segment is slightly dominant in luminal caliber in both A1 segments are patent imaged ACAs are patent. MCAs are normal in course and caliber without proximal large vessel occlusion or high-grade luminal stenosis. Intradural vertebral arteries and basilar artery are patent. Persistent primitive left trigeminal artery. senior treasury analyst are patent without high-grade luminal stenosis. VENOGRAM: Patency: The superior sagittal sinus, bilateral internal cerebral veins, vein of Bernard, straight sinus, bilateral transverse and sigmoid sinuses, and bilateral jugular bulbs demonstrate normal intraluminal flow-related signal without tubular or occlusive filling defect to suggest acute dural venous sinus thrombosis. Dominance: Slight dominance of the left transverse and sigmoid sinuses. The right transverse and sigmoid sinuses are small in caliber on a developmental basis. IMPRESSION: No acute intracranial abnormality. No mass or pathologic enhancement. Patent intracranial cerebral arterial circulation. No high-grade flow-limiting luminal stenosis. 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 Wireless Technician: LASHAY Transcribe Date/Time: 2024 9:53A Dictated by : PIEDAD DILLARD DO This examination was interpreted and the report reviewed and electronically signed by: PIEDAD DILLARD DO on 2024 10:19AM EST [id number] Normal [facility] No Panel Informationon 09-04 IMPRESSION: No acute intracranial abnormality. No mass or pathologic enhancement. Patent intracranial cerebral arterial circulation. No high-grade flow-limiting luminal stenosis. 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 Wireless Technician: [facility]ENTER[facility]kel Transcribe Date/Time: 2024 9:53A Dictated by : PIEDAD DILLARD DO This examination was interpreted and the report reviewed and electronically signed by: PIEDAD DILLARD DO on 2024 10:19AM EST DIVISION OF RADIOLOGY Radiology Study observation (narrative) [facility] No Panel InformationOrdered By: [facility] Provider on 2024 [facility] Creatinine + eGFR Pnl SerPlB ldon 08-24-2024 Creatinine and Glomerular filtration rate.predicted panel (S/P/Bld) 117 mL/min/1.73m??? Normal >=60 [facility] Comment on above: Order Comment: Velasquez llamas Type: BLOOD SPECIMENOrdering Facility: [facility] Address: [address] [address] Result Comment: Sabiha mated Glomerular Filtration Rate (eGFR) is calculated using the 2020 CKD-EPI creatinine equation. This equation utilizes serum creatinine, sex, and age as parameters. The creatinine assay has traceable calibration to isotope dilution-mass spectrometry. Refer to KDIGO guidelines for clinical interpretation. In patients with unstable renal function, e.g. those with acute kidney injury, the eGFR may not accurately reflect actual GFR. Performed By: #### 4 5066-8 ####[facility] [id number] [place] [address] [place] Creatinine and Glomerular fi ltration rate.predicted panel (S/P/Bld)on 08-24-2024 Creatinine [Mass/Vol] 0.66 mg/dL Normal 0.58-0.96 [facility] Comment on above: Order Comment: Velasquez llamas Type: BLOOD SPECIMENOrdering Facility: [facility] Address: [address] [place] [address] Performed By: #### 4 5066-8 ####[facility] [id number] [address] OF [facility] CNOVon 08-22-2024 CNOV Office Visit ([facility]) CYDNEY SULLIVAN ([id number]) 1990 F Date Time Provider Department 08/22/24 2:00 PM ASHLEY TOPETE [facility] During your visit today, we recorded the following information about you: Pulse Blood pressure Weight 90/minute 114/77 59 kg Ashley Topete, 08/22/2024 3:06 PM Signed Previous records (physician notes, laboratory reports, and radiology reports) and imaging studies were reviewed and summarized as below. My recommendations will be communicated back to the patient's primary care physician and/or consulting physician(s) by way of shared medical record or letter via US mail. Thank you for allowing me to contribute to the care of your patient. ASSESSMENT: 33 year old female with history significant for migraine, ?TMJ dysfunction, with new headaches, facial pain, ear pains, with a variety of new neurologic symptoms including a persistent visual shimmering, R>L tinnitus and pulsatile tinnitus, tingling in R anterior ear/jaw area. The visual shimmering could suggest persistent visual aura, but this would be atypical to begin abruptly without a past migraine history, and her current headaches do not technically fully fit migraine criteria. Notably, symptoms began shortly after taking tetracycline in June so we'll also evaluate for IIH given her constellation of symptoms with MRI. There could be some TMJ contribution, but unlikely the sole source of her constellation of symptoms so further neuroimaging is warranted. PLAN: (Please see typed patient instructions for detailed instructions) ---> Acute Treatment: -Medrol dose pack. ---> Preventive Treatment: -If Medrol doesn't help break up symptoms, she'll message and we'll add a preventive. Would start with low dose Amitriptyline or Gabapentin. ---> Recent labs from PCP to be faxed in and we'll add what may be missing (need ESR, CRP, CMP, CBC, TSH). ---> Brain MRI w/wo, MRA and MRA wo. ---> Consult to ophthalmology for her visual disturbances. ---> Headache education was done. Discussed medication side effects, adverse reactions and drug interactions. ---> Follow-up: 2-3 months. REFERRING PHYSICIAN: PCP Accompanied by: Spouse CC: Headache and Facial Pain HxCC: 33 year old female with history significant for migraine, ?TMJ dysfunction, who presents for evaluation of new headaches, facial pain, ear pains, with a variety of new neurologic symptoms. HEADACHE TYPE 1: Onset: Early June, a few days after taking some medications for H. Pylori infection (tetracycline, omeprazole). Location: Holocephalic, throughout face, around eyes, in R>L ears. Description: Pressure. Characteristics: Duration/ Frequency: 30 overall headache days per month which includes variable intensity. Timing: Less in morning. Time to peak pain intensity: Variable. Associated symptoms: Aura: Has a continuous shimmering sensation in vision. Denies migrainous features. Some ringing in ears of some variety which is hard to describe but describes it as a sound in the head. Relieving factors: ? Triggers: ? CURRENT ACUTE TREATMENTS: ---> None CURRENT PREVENTIVES: ---> None Prior Therapies Duration of Use Dose Reason for Discontinuation Over the Counter Medications Acetaminophen (Tylenol) Acetaminophen/Aspirin/ Caffeine (Excedrin, Goody?s) Aspirin Ibuprofen (Advil, Motrin) Naproxen sodium (Aleve) HEADACHE SCORES: 08/22/2024 Headache Questions ID Migraine Screener: 3 (Positive) ER visits in the last year: 2 Hospital stays in the last year: 0 Limited ADLs in the last month: 30 Days missed from work or school in the last month: 0 Days headache pain free in the last month: 0 Days per month with ALL of the following symptoms - decreased productivity, light sensitivity and nausea: 30 PRN medication usage in the last month: 2 08/22/2024 HIT-6 HIT-6 65 (Severe impact) 08/22/2024 CONNIE - 2/7 SCORES CONNIE-2 Score 4 08/22/2024 Migraine Specific QOL - Higher scores indicate better HRQL Role Function-Restrictive Transformed Score (range: 0-100) 42.86 Role Function-Preventive Transformed Score (range: 0-100) 60 Emotional Function Transformed Score (range: 0-100) 53.33 PRIOR EVALUATIONS: -ENT RECENT LABS: Latest Ref Rng 06/22/2024 Protein, Total 6.3 - 8.0 g/dL 7.1 Albumin 3.9 - 4.9 g/dL 4.1 Calcium 8.5 - 10.2 mg/dL 9.2 Bilirubin, Total 0.2 - 1.3 mg/dL 0.3 Alkaline Phosphatase 34 - 123 U/L 83 AST 13 - 35 U/L 12 (L) ALT 7 - 38 U/L 7 Glucose 74 - 99 mg/dL 99 BUN 7 - 21 mg/dL 12 Creatinine 0.58 - 0.96 mg/dL 0.83 Sodium 136 - 144 mmol/L 136 Potassium 3.7 - 5.1 mmol/L 3.8 Chloride 98 - 107 mmol/L 101 CO2 22 - 30 mmol/L 28 Anion Gap 8 - 15 mmol/L 7 (L) eGFR >=60 mL/min/1.73m? 94 Legend: (L) Low RECEN (more content not included)... Normal [facility] 36on 08-17-2024 36 Name of caller: Cydney Contact phone number: [phone] Relationship to Patient: patient Provider: Dr. 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 Please contact Cydney and advise. Best time of day caller can be reached: Any Patient advised that office/PCP has 24-48 business hours to return their call: No Normal [facility] 08-11-2024 CNOV Office Visit (OTOLBD ) CYDNEY SULLIVAN ([id number]) 1990 F Date Time Provider Department 08/11/24 9:45 AM REYNALDO LAINEZ OTOLBD During your visit today, we recorded the following information about you: Reynaldo Lainez MD 08/11/2024 9:53 AM Signed OTOLARYNGOLOGY-HEAD AND NECK SURGERY CC: Consultation requested by Dr. durbin for an opinion regarding ear pain. My final recommendations will be communicated back to the requesting physician by way of shared Medical record or letter to requesting physician via US mail. Assessment/Plan: 1. Referred otalgia of right ear (H92.01) 2. Referred otalgia of left ear (H92.02) 3. Tinnitus, right ear (H93.11) - Bilateral otalgia and right ear tinnitus likely secondary to temporomandibular joint dysfunction and muscle tension. - Otoscopic examination revealed normal ear anatomy bilaterally. - Ordered audiometric evaluation to rule out any underlying hearing loss. - Referred to a jaw joint dentist and physical therapist for TMJ dysfunction management. 4. Migraine variant (G43.809) - Symptoms consistent with migraine variant, including visual disturbances described as "aura" and pressure sensations in the head and eyes. - Nasal endoscopy performed; no evidence of sinus infection or masses. - Discussed the chronic nature of migraines and the potential for symptoms to last weeks. - Referred to a headache neurologist for further evaluation and management. - Advised continuation of steam inhalation; initiated Flonase nasal spray with expected onset of action in 4-6 weeks to manage mucosal symptoms. - Patient understands and agrees with the treatment plan. HPI: Cydney Sullivan is a 33-year-old female presenting with right ear tinnitus, facial pressure, and visual disturbances. Right Ear Tinnitus: - Onset during H. pylori treatment in May or June. - Persistent despite completing antibiotic course. - ENT evaluation included earwax removal and nasal spray, with no relief. Facial Pressure and Pain: - Describes "very pressure" in the head and face, with associated pain. - Symptoms began after H. pylori treatment. - No personal or family history of migraines. Visual Disturbances: - Reports "moving" or "shimmering" vision, with images not appearing static. - Onset after one week of antibiotic treatment for suspected sinus infection. ALLERGIES Not on File Current Outpatient Medications Medication Sig doxycycline hyclate (VIBRAMYCIN) 100 mg capsule Take 1 capsule by mouth every 12 hours. hydrocortisone 2.5 % cream tetracycline (SUMYCIN) 500 mg cap TAKE 1 CAPSULE BY MOUTH 4 TIMES DAILY FOR 14 DAYS omeprazole (PRILOSEC) 20 mg capsule Take 1 capsule by mouth once daily. omeprazole (PRILOSEC) 40 mg capsule Take 1 capsule by mouth two times a day for 14 days. No current facility-administered medications for this visit. No past medical history on file. No past surgical history on file. Social History: No family history on file. ROS: GENERAL: No weight loss, malaise or fevers. HEENT: Negative for frequent or significant headaches, No changes in hearing or vision, No nasal bleeding, congestion or rhinorrhea, No sore throat or change in voice NECK: Negative for lumps, goiter, pain and significant neck swelling RESPIRATORY: Negative for cough, hemoptysis, wheezing or shortness of breath NEUROLOGIC: Negative for focal numbness or weakness, headaches and dizziness or syncope. SKIN: Negative for lesions, rash, and itching. PHYSICAL EXAM: On physical examination Cydney Sullivan is a well-developed, well nourished female. Her speech is nl and her voice is nl. Mental status revealed patient to be alert and oriented. Mood is appropriate. Details of the physical examination: CRANIAL NERVE EXAM: II: Pupillary reflexes normal III, IV, : EOM normal V: 1,2,3: normal sensation VII: Normal strength in all divisions. VIII: Hearing grossly normal. IX, X: palatal elevation and sensation XI: Shoulder strength normal XII: Tongue mobility normal HEAD AND FACE: Physical examination of the head, neck, external nose, external ears, mouth and face fails to demonstrate any significant abnormality or asymmetry to critical face to face observation. Skin and scalp are normal. EARS: An operating microscope was used to provide complete visualization of the canal, tympanic membrane and middle ear structures. RT Canal: patent RT Drum: intact LT Canal: patent LT Drum: intact NOSE: Examination of the nasal cavity revealed a septum which is dns to the L. The mucosa is pink, and the visible turbinates are nl on anterior rhinoscopy. There is no purulence or polyps. MASTICATION: The teeth appear nl. The lips and gums are without lesions. ORAL CAVITY AND OROPHARYNX: The oral mucosa, hard and soft palates, tongue, tonsil area, and posterior pharyngeal wall are without (more content not included)... Normal [facility] 36 08-08-2024 36 Name of Caller: Cydney Contact Reason for Appointment: Patient canceled the 08/14/24 new patient appointment due to "an emergency." Will call back at a later date to reschedule. Office Name: ENT [facility] 36 S: Patient and her called the clinical access center with complaint of ringing in the right ear and pain on the right side of her ear B: She was evaluated by an ENT in [place] and prescribed an antibiotic with no relief. Scanning was ordered, but she has not had anything done .Calling for a second opinion New patient appointment. Symptoms have been present for the past 4 weeks A: She has symptoms of ringing in her right ear and intermittent earache. Her is unaware of a fever. R: New patient appointment scheduled, insurance verified . Advised to go to ED for severe or persistent pain . Patient instructed to call back with worsening symptoms, concerns or questions. Reason for Disposition Ear is painful Protocols used: [id number]-NP [facility] H pylori Ag Stl Ql IAon 07-17 H. pylori Ag IA Ql (Stl) H.PYLORI EIA RE SULT: Negative for Helicobacter pylori antigen by EIA Normal [facility] Comment on above: Performed By: #### 1 7780-8 ####[facility] [id number] [place] [address] [place] Absolute lymphocyte countOrd ered By: Daniel Reynolds on 07-12-2024 Lymphocytes Auto (Unsp spec) [#/Vol] 1.33 10*3/uL 0.83-4.51 [facility] Absolute neutrophil countOrd ered By: Daniel Reynolds on 07-12-2024 Neutrophils (Bld) [#/Vol] 3.2 10*3/uL 2.0-7.7 [facility] Anion gap in Serum or Plasma Ordered By: Daniel Reynolds on 07-12-2024 Anion gap [Moles/Vol] 10 mmol/L 5-15 [facility] Automated lymphocyte count a s percentage of total leukocytesOrdered By: Daniel Reynolds on 07-12-2024 Lymphocytes/100 WBC Auto (Unsp spec) 25.4 % 19-41 [facility] BUN/creatinine ratioOrdered By: Daniel Reynolds on 07-12-2024 Urea nitrogen/Creatinine [Mass ratio] 12.3 mg/mg 10-20 [facility] Basophil percentageOrdered B y: Daniel Reynolds on 07-12-2024 Basophils/100 WBC (Bld) 1.1 % High 0-1 [facility] Bilirubin, totalOrdered By: Daniel Reynolds on 07-12-2024 Bilirubin [Mass/Vol] 0.31 mg/dL 0.00-1.30 [facility] CBC W/Diff, Automatedon 06-16 Absolute Lymph 1.33 X10 3/uL Normal 0.83-4.51 [facility] Comment on above: Performed By: #### L 501.9520, L500.4050, L500.4100, L100.0100 #### [facility] [address] [place], [address] Absolute Neut 3.2 X10 3/uL Normal 2.0-7.7 [facility] Comment on above: Performed By: #### L 501.9520, L500.4050, L500.4100, L100.0100 #### [facility] [address] [place], [address] Basophils/100 WBC (Bld) 1.1 % High 0-1 [facility] Comment on above: Performed By: #### L 501.9520, L500.4050, L500.4100, L100.0100 #### [facility] [address] [place], [address] Eosinophils/100 WBC (Bld) 5.5 % High 0-5 [facility] Comment on above: Performed By: #### L 501.9520, L500.4050, L500.4100, L100.0100 #### [facility] [address] [place], [address] Erythrocyte distribution width (RBC) [Ratio] 12.4 % Normal 11.6-14.6 [facility] Comment on above: Performed By: #### L 501.9520, L500.4050, L500.4100, L100.0100 #### [facility] [address] [place], [address] Hematocrit (Bld) [Volume fraction] 36.2 % Low 37-47 [facility] Comment on above: Performed By: #### L 501.9520, L500.4050, L500.4100, L100.0100 #### [facility] [address] [place], [address] Hemoglobin (Bld) [Mass/Vol] 12.0 g/dL Normal 12.0-15.0 [facility] Comment on above: Performed By: #### L 501.9520, L500.4050, L500.4100, L100.0100 #### [facility] [address] [place], [address] IG% 0.000 Normal 0.0-0.9 [facility] Comment on above: Result Comment: IG% - Immature Granulocytes (promyelocytes, myelocytes and metamyelocytes) > 1% indicates that a LEFT SHIFT is Present. Performed By: #### L 501.9520, L500.4050, L500.4100, L100.0100 #### [facility] [address] [place], [address] Lymphocytes/100 WBC (Bld) 25.4 % Normal 19-41 [facility] Comment on above: Performed By: #### L 501.9520, L500.4050, L500.4100, L100.0100 #### [facility] [address] [place], [address] MCH (RBC) [Entitic mass] 28.9 pg Normal 27.0-32.0 [facility] Comment on above: Performed By: #### L 501.9520, L500.4050, L500.4100, L100.0100 #### [facility] [address] [place], [address] MCHC (RBC) [Mass/Vol] 33.1 g/dL Normal 32-36 [facility] Comment on above: Performed By: #### L 501.9520, L500.4050, L500.4100, L100.0100 #### [facility] [address] [place], [address] MCV (RBC) [Entitic vol] 87.2 fL Normal 81-99 [facility] Comment on above: Performed By: #### L 501.9520, L500.4050, L500.4100, L100.0100 #### [facility] [address] [place], [address] Monocytes/100 WBC (Bld) 7.3 % Normal 0-10 [facility] Comment on above: Performed By: #### L 501.9520, L500.4050, L500.4100, L100.0100 #### [facility] [address] [place], [address] Neutrophils/100 WBC (Bld) 60.7 % Normal 47-70 [facility] Comment on above: Performed By: #### L 501.9520, L500.4050, L500.4100, L100.0100 #### [facility] [address] [place], [address] Nucleated RBC (Bld) [#/Vol] 0 10*3/uL Normal 0-5 [facility] Comment on above: Performed By: #### L 501.9520, L500.4050, L500.4100, L100.0100 #### [facility] [address] [place], [address] Platelet mean volume (Bld) [Entitic vol] 10.1 fL Normal 6.2-12.0 [facility] Comment on above: Performed By: #### L 501.9520, L500.4050, L500.4100, L100.0100 #### [facility] [address] [place], [address] Platelets (Bld) [#/Vol] 305 10*3/uL Normal 150-450 [facility] Comment on above: Performed By: #### L 501.9520, L500.4050, L500.4100, L100.0100 #### [facility] [address] [place], [address] RBC (Bld) [#/Vol] 4.15 10*6/uL Low 4.2-5.4 [facility] Comment on above: Performed By: #### L 501.9520, L500.4050, L500.4100, L100.0100 #### [facility] [address] [place], [address] RDW SD 39.7 fl Normal 35.1-43.9 [facility] Comment on above: Performed By: #### L 501.9520, L500.4050, L500.4100, L100.0100 #### [facility] [address] [place], [address] WBC (Bld) [#/Vol] 5.2 10*3/uL Normal 4.4-11.0 [facility] Comment on above: Performed By: #### L 501.9520, L500.4050, L500.4100, L100.0100 #### [facility] [address] [place], [address] Calculated very low density lipoprotein (VLDL) cholesterol measurementOrdered By: Daniel Reynolds on 07-12-2024 Calculated very low density lipoprotein (VLDL) cholesterol measurement 32 mg/dL 5-40 [facility] Carbon dioxide, total [Moles /volume] in Central venous bloodOrdered By: Daniel Reynolds on 07-12-2024 CO2 [Moles/Vol] 23.9 mmol/L 21.0-32.0 [facility] Chloride assayOrdered By: Raymond Reynolds on 07-12-2024 Chloride [Moles/Vol] 104 mmol/L 98-108 [facility] Comprehensive Metabolic Prof ilon 07-12-2024 Albumin [Mass/Vol] 4.1 g/dL Normal 3.5-5.0 [facility] Comment on above: Performed By: #### L 501.9520, L500.4050, L500.4100, L100.0100 #### [facility] [address] [place], [address] Albumin/Globulin [Mass ratio] 1.3 {ratio} Normal 0.9-2.4 [facility] Comment on above: Performed By: #### L 501.9520, L500.4050, L500.4100, L100.0100 #### [facility] [address] [place], [address] ALK PHOS 62 U/L Normal 35-104 [facility] Comment on above: Performed By: #### L 501.9520, L500.4050, L500.4100, L100.0100 #### [facility] [address] [place], [address] ALT [Catalytic activity/Vol] 10 U/L Normal <=34 [facility] Comment on above: Performed By: #### L 501.9520, L500.4050, L500.4100, L100.0100 #### [facility] [address] [place], [address] AST [Catalytic activity/Vol] 17 U/L Normal <=31 [facility] Comment on above: Performed By: #### L 501.9520, L500.4050, L500.4100, L100.0100 #### [facility] [address] [place], [address] Bilirubin [Mass/Vol] 0.31 mg/dL Normal 0.00-1.30 [facility] Comment on above: Performed By: #### L 501.9520, L500.4050, L500.4100, L100.0100 #### [facility] [address] [place], [address] BUN/CRE 12.3 RATIO Normal 10-20 [facility] Comment on above: Performed By: #### L 501.9520, L500.4050, L500.4100, L100.0100 #### [facility] [address] [place], [address] Calcium [Mass/Vol] 9.5 mg/dL Normal 7.6-11.0 [facility] Comment on above: Performed By: #### L 501.9520, L500.4050, L500.4100, L100.0100 #### [facility] [address] [place], [address] Chloride [Moles/Vol] 104 mmol/L Normal 98-108 [facility] Comment on above: Performed By: #### L 501.9520, L500.4050, L500.4100, L100.0100 #### [facility] [address] [place], [address] CO2 [Moles/Vol] 23.9 mmol/L Normal 21.0-32.0 [facility] Comment on above: Performed By: #### L 501.9520, L500.4050, L500.4100, L100.0100 #### [facility] [address] [place], [address] Creatinine [Mass/Vol] 0.68 mg/dL Low 0.70-1.20 [facility] Comment on above: Performed By: #### L 501.9520, L500.4050, L500.4100, L100.0100 #### [facility] [address] [place], [address] GAP 10 Normal 5-15 [facility] Comment on above: Performed By: #### L 501.9520, L500.4050, L500.4100, L100.0100 #### [facility] [address] [place], [address] GFR/1.73 sq M.predicted among non-blacks MDRD (S/P/Bld) [Vol rate/Area] 116 mL/min/{1.73_m2} Normal >60 [facility] Comment on above: Result Comment: mL/m in/1.73m2 CKD-EPI Creatinine Equation (2020) Performed By: #### L 501.9520, L500.4050, L500.4100, L100.0100 #### [facility] [address] [place], [address] Globulin (S) [Mass/Vol] 3.1 g/dL Normal 2.2-4.2 [facility] Comment on above: Performed By: #### L 501.9520, L500.4050, L500.4100, L100.0100 #### [facility] [address] [place], [address] Glucose [Mass/Vol] 90 mg/dL Normal 70-99 [facility] Comment on above: Performed By: #### L 501.9520, L500.4050, L500.4100, L100.0100 #### [facility] [address] [place], [address] Potassium [Moles/Vol] 4.1 mmol/L Normal 3.3-5.1 [facility] Comment on above: Performed By: #### L 501.9520, L500.4050, L500.4100, L100.0100 #### [facility] [address] [place], [address] Sodium [Moles/Vol] 139 mmol/L Normal 133-145 [facility] Comment on above: Performed By: #### L 501.9520, L500.4050, L500.4100, L100.0100 #### [facility] [address] [place], [address] T PROT 7.2 g/dL Normal 5.9-8.4 [facility] Comment on above: Performed By: #### L 501.9520, L500.4050, L500.4100, L100.0100 #### [facility] [address] [place], [address] Urea nitrogen [Mass/Vol] 8 mg/dL Normal 4-19 [facility] Comment on above: Performed By: #### L 501.9520, L500.4050, L500.4100, L100.0100 #### [facility] [address] [place], [address] Eosinophil percentageOrdered By: Daniel Reynolds on 07-12-2024 Eosinophils/100 WBC (Bld) 5.5 % High 0-5 [facility] Erythrocyte distribution wid th ratioOrdered By: Daniel Reynolds on 07-12-2024 Erythrocyte distribution width (RBC) [Ratio] 12.4 % 11.6-14.6 [facility] Erythrocyte distribution wid th standard deviationOrdered By: Daniel Reynolds on 07-12-2024 Erythrocyte distribution width (RBC) [Ratio] 39.7 fl 35.1-43.9 [facility] Glomerular filtration rate ( GFR) estimation/1.73 sq m using serum, plasma, or whole bOrdered By: Daniel Reynolds on 07-12-2024 GFR/1.73 sq M.predicted among non-blacks MDRD (S/P/Bld) [Vol rate/Area] 116 mL/min/{1.73_m2} >60 [facility] Comment on above: mL/min/1.73m2 CKD-EP I Creatinine Equation (2020) Hematocrit Auto (Bld) [Volum e fraction]Ordered By: Daniel Reynolds on 07-12-2024 Hematocrit (Bld) [Volume fraction] 36.2 % Low 37-47 [facility] Hemoglobin measurementOrdere d By: Daniel Reynolds on 07-12-2024 Hemoglobin (Bld) [Mass/Vol] 12.0 g/dL 12.0-15.0 [facility] Immature granulocytes/100 WB C Auto (Bld)Ordered By: Daniel Reynolds on 07-12-2024 Immature granulocytes/100 WBC (Bld) 0.000 % 0.0-0.9 [facility] Comment on above: IG% - Immature Granu locytes (promyelocytes, myelocytes and metamyelocytes) > 1% indicates that a LEFT SHIFT is Present. LDL calc ser/plasOrdered By: Daniel Reynolds on 07-12-2024 Cholesterol in LDL [Mass/Vol] 117 mg/dL [facility] Comment on above: Lqwpbfigzx=703-929 m g/dL & Higher Gnqm=373 mg/dL or greater Laboratory - Chemistry and C hemistry - challengeOrdered By: Daniel Reynolds on 07-12-2024 AST [Catalytic activity/Vol] 17 U/L <32 [facility] Lipid Profileon 07-12-2024 CHOL:HDL 5.17 Normal [facility] Comment on above: Performed By: #### L 501.9520, L500.4050, L500.4100, L100.0100 #### [facility] [address] [place], [place], [id number] Cholesterol [Mass/Vol] 185 mg/dL Normal <=200 [facility] Comment on above: Result Comment: Chol esterol level, Desirable <200 mg/dL Borderline high cholesterol 200-239 mg/dL High cholesterol >=240 mg/dL Recommendations of the NCEP Adult Treatment Panel for the following risk-cutoff thresholds for the [place] population. Performed By: #### L 501.9520, L500.4050, L500.4100, L100.0100 #### [facility] [address] [place], [place], [id number] Cholesterol in HDL [Mass/Vol] 36 mg/dL Low [facility] Comment on above: Result Comment: Veronica onal Cholesterol Education Program (NCEP) guidelines: <40 mg/dL: Low HDL-cholesterol (major risk factor for CHD) >= 60 mg/dL: High HDL-cholesterol (negative risk factor for CHD) HDL-cholesterol is affected by a number of factors, e.g. smoking, exercise, hormones, sex and age. Performed By: #### L 501.9520, L500.4050, L500.4100, L100.0100 #### [facility] [address] [place], [address] Cholesterol in LDL [Mass/Vol] 117 mg/dL Normal [facility] Comment on above: Result Comment: Bord iyqbta=422-830 mg/dL Higher Olzz=928 mg/dL or greater Performed By: #### L 501.9520, L500.4050, L500.4100, L100.0100 #### [facility] [address] [place], [address] Cholesterol in VLDL [Mass/Vol] 32 mg/dL Normal 5-40 [facility] Comment on above: Performed By: #### L 501.9520, L500.4050, L500.4100, L100.0100 #### [facility] [address] [place], [address] Triglyceride [Mass/Vol] 161 mg/dL Normal [facility] Comment on above: Result Comment: The drugs N-Acetylcysteine and Metamizole may falsely depress this assay. Normal range: <150 mg/dL Borderline High: 150-199 mg/dL High: 200-499 mg/dL Very High: >500 mg/dL Performed By: #### L 501.9520, L500.4050, L500.4100, L100.0100 #### [facility] [address] [place], [address] MCV (mean corpuscular volume ) determinationOrdered By: Daniel Reynolds on 07-12-2024 MCV (RBC) [Entitic vol] 87.2 fL 81-99 [facility] Mean corpuscular hemoglobin (MCH) determinationOrdered By: Daniel Reynolds on 07-12-2024 MCH (RBC) [Entitic mass] 28.9 pg 27.0-32.0 [facility] Mean corpuscular hemoglobin concentration (MCHC) determinationOrdered By: Daniel Reynolds on 07-12-2024 MCHC (RBC) [Mass/Vol] 33.1 g/dL 32-36 [facility] Mean platelet volume determi nationOrdered By: Daniel Reynolds on 07-12-2024 Platelet mean volume (Bld) [Entitic vol] 10.1 fL 6.2-12.0 [facility] Monocyte percentageOrdered B y: Daniel Reynolds on 07-12-2024 Monocytes/100 WBC (Bld) 7.3 % 0-10 [facility] Neutrophil percentageOrdered By: Daniel Reynolds on 07-12-2024 Neutrophils/100 WBC (Bld) 60.7 % 47-70 [facility] Nucleated red blood cell per centageOrdered By: Daniel Reynolds on 07-12-2024 Nucleated RBC/100 WBC (Bld) [Ratio] 0 % 0-5 [facility] Platelet countOrdered By: Raymond Reynolds on 07-12-2024 Platelets (Bld) [#/Vol] 305 10*3/uL 150-450 [facility] Potassium measurement (mass/ volume)Ordered By: Daniel Reynolds on 07-12-2024 Potassium (Unsp spec) [Mass/Vol] 4.1 mmol/L 3.3-5.1 [facility] RBC Auto (Bld) [#/Vol]Ordere d By: Daniel Reynolds on 07-12-2024 RBC (Bld) [#/Vol] 4.15 10*6/uL Low 4.2-5.4 [facility] Screening total cholesterol/ high density lipoprotein (HDL) cholesterol ratioOrdered By: Daniel Reynolds on 07-12-2024 Cholesterol.total/Choles terol in HDL [Mass ratio] 5.17 {ratio} [facility] Serum creatinine measurement (mass/volume)Ordered By: Daniel Reynolds on 07-12-2024 Creatinine [Mass/Vol] 0.68 mg/dL Low 0.70-1.20 [facility] Serum globulin measurementOr dered By: Daniel Reynolds on 07-12-2024 Globulin (S) [Mass/Vol] 3.1 g/dL 2.2-4.2 [facility] Serum glucose measurement (m ass/volume)Ordered By: Daniel Reynolds on 07-12-2024 Glucose [Mass/Vol] 90 mg/dL 70-99 [facility] Serum or plasma alanine wang otransferase (ALT) measurementOrdered By: Daniel Reynolds on 07-12-2024 ALT [Catalytic activity/Vol] 10 U/L <35 [facility] Serum or plasma albumin erma urement (mass/volume)Ordered By: Daniel Reynolds on 07-12-2024 Albumin [Mass/Vol] 4.1 g/dL 3.5-5.0 [facility] Serum or plasma albumin/glob ulin mass ratioOrdered By: Daniel Reynolds on 07-12-2024 Albumin/Globulin [Mass ratio] 1.3 {ratio} 0.9-2.4 [facility] Serum or plasma alkaline ashok sphatase measurementOrdered By: Daniel Reynolds on 07-12-2024 ALP [Catalytic activity/Vol] 62 U/L 35-104 [facility] Serum or plasma calcium erma urement (mass/volume)Ordered By: Daniel Reynolds on 07-12-2024 Calcium [Mass/Vol] 9.5 mg/dL 7.6-11.0 [facility] Serum or plasma cholesterol in HDL measurement (mass/volume)Ordered By: Daniel Reynolds on 07-12-2024 Cholesterol in HDL [Mass/Vol] 36 mg/dL Low >40 [facility] Comment on above: National Cholesterol Education Program (NCEP) guidelines:<40 mg/dL: Low HDL-cholesterol (major risk factor for CHD)>= 60 mg/dL: High HDL-cholesterol (negative risk factor for CHD)HDL-cholesterol is affected by a number of factors, e.g. smoking, exercise, hormones, sex and age. Serum or plasma cholesterol measurement (mass/volume)Ordered By: Daniel Reynolds on 07-12-2024 Cholesterol [Mass/Vol] 185 mg/dL <201 [facility] Comment on above: Cholesterol level, D esirable <200 mg/dLBorderline high cholesterol 200-239 mg/dLHigh cholesterol >=240 mg/dLRecommendations of the NCEP Adult Treatment Panel for the following risk-cutoff thresholds for the [place] population. Serum or plasma urea nitroge n measurement (mass/volume)Ordered By: Daniel Reynolds on 07-12-2024 Urea nitrogen [Mass/Vol] 8 mg/dL 4-19 [facility] Sodium levelOrdered By: Daniel Reynolds on 07-12-2024 Sodium [Moles/Vol] 139 mmol/L 133-145 [facility] TSH DL <= 0.005 mIU/L QnOrde red By: Daniel Reynolds on 07-12-2024 TSH Qn 3.290 uIU/mL 0.300-4.200 [facility] Thyroid Stim Hormone (TSH)on 07-12-2024 TSH 3.290 uIU/mL Normal 0.300-4.200 [facility] Comment on above: Performed By: #### L 501.9520, L500.4050, L500.4100, L100.0100 #### [facility] [place], [address] Total proteinOrdered By: Bhavna Reynolds on 07-12-2024 Protein [Mass/Vol] 7.2 g/dL 5.9-8.4 [facility] Triglycerides measurementOrd ered By: Daniel Reynolds on 07-12-2024 Triglyceride [Mass/Vol] 161 mg/dL <199 [facility] Comment on above: The drugs N-Acetylcy steine and Metamizole may falsely depress this assay. Normal range: <150 mg/dLBorderline High: 150-199 mg/dLHigh: 200-499 mg/dLVery High: >500 mg/dL White blood cell (WBC) count Ordered By: Daniel Reynolds on 07-12-2024 WBC (Bld) [#/Vol] 5.2 10*3/uL 4.4-11.0 [facility] Comprehensive metabolic 2000 panelOrdered By: Izabella Denis on 06-22-2024 Albumin [Mass/Vol] 4.1 g/dL 3.9 - 4.9 g/dL [facility] ALP [Catalytic activity/Vol] 83 U/L 34 - 123 U/L [facility] ALT [Catalytic activity/Vol] 7 U/L 7 - 38 U/L [facility] Anion gap [Moles/Vol] 7 mmol/L Low 8 - 15 mmol/L [facility] AST [Catalytic activity/Vol] 12 U/L Low 13 - 35 U/L [facility] Bilirubin [Mass/Vol] 0.3 mg/dL 0.2 - 1 .3 mg/dL [facility] Calcium [Mass/Vol] 9.2 mg/dL 8.5 - 10. 2 mg/dL [facility] Chloride [Moles/Vol] 101 mmol/L 98 - 10 7 mmol/L [facility] CO2 [Moles/Vol] 28 mmol/L 22 - 30 mmol/L [facility] Creatinine [Mass/Vol] 0.83 mg/dL 0.58 - 0.96 mg/dL [facility] GFR/1.73 sq M.predicted among non-blacks MDRD (S/P/Bld) [Vol rate/Area] 94 mL/min/{1.73_m2} - PINF [facility] Comment on above: Estimated Glomerular Filtration Rate (eGFR) is calculated using the 2020 CKD-EPI creatinine equation. This equation utilizes serum creatinine, sex, and age as parameters. The creatinine assay has traceable calibration to isotope dilution-mass spectrometry. Refer to KDIGO guidelines for clinical interpretation. In patients with unstable renal function, e.g. those with acute kidney injury, the eGFR may not accurately reflect actual GFR. Glucose [Mass/Vol] 99 mg/dL 74 - 99 mg/dL [facility] Comment on above: The [place] Diabete s Association (ADA) provides guidance for cutoff values for fasting glucose and random glucose. The ADA defines fasting as no caloric intake for at least 8 hours. Fasting plasma glucose results between 100 to 125 mg/dL indicate increased risk for diabetes (prediabetes). Fasting plasma glucose results greater than or equal to 126 mg/dL meet the criteria for diagnosis of diabetes. In the absence of unequivocal hyperglycemia, results should be confirmed by repeat testing. In a patient with classic symptoms of hyperglycemia or hyperglycemic crisis, random plasma glucose results greater than or equal to 200 mg/dL meet the criteria for diagnosis of diabetes. Reference: Standards of Medical Care in Diabetes 2016, [place] Diabetes Association. Diabetes Care. 2016.39(Suppl 1). Interpretation and review of laboratory results Abnormal [facility] Potassium [Moles/Vol] 3.8 mmol/L 3.7 - 5.1 mmol/L [facility] Protein [Mass/Vol] 7.1 g/dL 6.3 - 8.0 g/dL [facility] Sodium [Moles/Vol] 136 mmol/L 136 - 144 mmol/L [facility] Urea nitrogen [Mass/Vol] 12 mg/dL 7 - 21 mg/d L [facility] Comprehensive metabolic 2000 panelon 06-22-2024 Albumin [Mass/Vol] 4.1 g/dL Normal 3.9-4.9 [facility] Comment on above: Order Comment: Speci men Type: BLOOD SPECIMEN Ordering Facility: [facility] Address: [address] [place] [address] Performed By: #### 2 4323-8 #### [facility] CLIA [id number] [address] [place] [address] [place] ALP [Catalytic activity/Vol] 83 U/L Normal 34-123 [facility] Comment on above: Order Comment: Speci men Type: BLOOD SPECIMEN Ordering Facility: [facility] Address: [address] [place] [address] Performed By: #### 2 4323-8 #### [facility] CLIA [id number] [address] [place] [address] [place] ALT [Catalytic activity/Vol] 7 U/L Normal 7-38 [facility] Comment on above: Order Comment: Speci men Type: BLOOD SPECIMEN Ordering Facility: [facility] Address: [address] [place] [address] Performed By: #### 2 4323-8 #### [facility] CLIA [id number] [address] [place] [address] [place] Anion gap [Moles/Vol] 7 mmol/L Low 8-15 [facility] Comment on above: Order Comment: Speci men Type: BLOOD SPECIMEN Ordering Facility: [facility] Address: [address] [place] [address] Performed By: #### 2 4323-8 #### [facility] CLIA [id number] [address] [place] [address] [place] AST [Catalytic activity/Vol] 12 U/L Low 13-35 [facility] Comment on above: Order Comment: Speci men Type: BLOOD SPECIMEN Ordering Facility: [facility] Address: [address] [place] [address] Performed By: #### 2 4323-8 #### [facility] CLIA [id number] [address] [place] [address] [place] Bilirubin [Mass/Vol] 0.3 mg/dL Normal 0.2-1.3 [facility] Comment on above: Order Comment: Speci men Type: BLOOD SPECIMEN Ordering Facility: [facility] Address: [address] [place] [address] Performed By: #### 2 4323-8 #### [facility] CLIA [id number] [address] [place] [address] [place] Calcium [Mass/Vol] 9.2 mg/dL Normal 8.5-10.2 [facility] Comment on above: Order Comment: Speci men Type: BLOOD SPECIMEN Ordering Facility: [facility] Address: [address] [place] [address] Performed By: #### 2 4323-8 #### [facility] CLIA [id number] [address] [place] [address] [place] Chloride [Moles/Vol] 101 mmol/L Normal 98-107 [facility] Comment on above: Order Comment: Speci men Type: BLOOD SPECIMEN Ordering Facility: [facility] Address: [address] [place] [address] Performed By: #### 2 4323-8 #### [facility] CLIA [id number] [address] [place] [address] [place] CO2 [Moles/Vol] 28 mmol/L Normal 22-30 [facility] Comment on above: Order Comment: Speci men Type: BLOOD SPECIMEN Ordering Facility: [facility] Address: [address] [place] [address] Performed By: #### 2 4323-8 #### [id number] [address] [place] [address] [place] Creatinine [Mass/Vol] 0.83 mg/dL Normal 0.58-0.96 [facility] Comment on above: Order Comment: Velasquez men Type: BLOOD SPECIMEN Ordering Facility: [facility] Address: [address] [place], [place] [id number] Performed By: #### 2 4323-8 #### [facility] [id number] [address] [place] [address] [place] Creatinine and Glomerular filtration rate.predicted panel (S/P/Bld) 94 mL/min/1.73m??? Normal >=60 [facility] Comment on above: Order Comment: Velasquez llamas Type: BLOOD SPECIMEN Ordering Facility: [facility] Address: [address] [place] [address] Result Comment: Sabiha mated Glomerular Filtration Rate (eGFR) is calculated using the 2020 CKD-EPI creatinine equation. This equation utilizes serum creatinine, sex, and age as parameters. The creatinine assay has traceable calibration to isotope dilution-mass spectrometry. Refer to KDIGO guidelines for clinical interpretation. In patients with unstable renal function, e.g. those with acute kidney injury, the eGFR may not accurately reflect actual GFR. Performed By: #### 2 4323-8 #### [facility] [id number] [address] [place] [address] [place] Glucose [Mass/Vol] 99 mg/dL Normal 74-99 [facility] Comment on above: Order Comment: Velasquez muriel Type: BLOOD SPECIMEN Ordering Facility: [facility] Address: [address] [place] [address] Result Comment: The [place] Diabetes Association (ADA) provides guidance for cutoff values for fasting glucose and random glucose. The ADA defines fasting as no caloric intake for at least 8 hours. Fasting plasma glucose results between 100 to 125 mg/dL indicate increased risk for diabetes (prediabetes). Fasting plasma glucose results greater than or equal to 126 mg/dL meet the criteria for diagnosis of diabetes. In the absence of unequivocal hyperglycemia, results should be confirmed by repeat testing. In a patient with classic symptoms of hyperglycemia or hyperglycemic crisis, random plasma glucose results greater than or equal to 200 mg/dL meet the criteria for diagnosis of diabetes. Reference: Standards of Medical Care in Diabetes 2016, [place] Diabetes Association. Diabetes Care. 2016.39(Suppl 1). Performed By: #### 2 4323-8 #### [facility] CLIA [id number] [address] [place] [address] [place] Potassium [Moles/Vol] 3.8 mmol/L Normal 3.7-5.1 [facility] Comment on above: Order Comment: Velasquez llamas Type: BLOOD SPECIMEN Ordering Facility: [facility] Address: [address] [place] [address] Performed By: #### 2 4323-8 #### [facility] [id number] [address] [place] [address] [place] Protein [Mass/Vol] 7.1 g/dL Normal 6.3-8.0 [facility] Comment on above: Order Comment: Velasquez llamas Type: BLOOD SPECIMEN Ordering Facility: [facility] Address: [address] [place] [address] Performed By: #### 2 4323-8 #### [facility] [id number] [address] [place] [address] [place] Sodium [Moles/Vol] 136 mmol/L Normal 136-144 [facility] Comment on above: Order Comment: Seai muriel Type: BLOOD SPECIMEN Ordering Facility: [facility] Address: [address] [place] [address] Performed By: #### 2 4323-8 #### [facility] [id number] [address] [place] [address] [place] Urea nitrogen [Mass/Vol] 12 mg/dL Normal 7-21 [facility] Comment on above: Order Comment: Speci men Type: BLOOD SPECIMEN Ordering Facility: [facility] Address: [address] [place] [address] Performed By: #### 2 4323-8 #### [facility] CLIA [id number] [address] [place] [id number] [place] [address] [facility] CNOVon 06-15-2024 CNOV Office Visit ([facility] ) CYDNEY SULLIVAN ([id number]) 1990 F Date Time Provider Department 06/15/24 10:00 AM ALEX BAUTISTA [facility] During your visit today, we recorded the following information about you: Pulse Blood pressure Weight Height 97/minute 125/77 61 kg 1.626 m Alex Bautista MD 06/15/2024 10:34 AM Signed DEPARTMENT OF GASTROENTEROLOGY AND HEPATOLOGY [facility] DEPARTMENT OF GASTROENTEROLOGY - NEW PATIENT/CONSULT Reason for visit My final recommendations will be communicated back to the requesting physician by the way of the shared medical record, fax, or via US Mail. The patient consented to the use of [employer] software for draft documentation of the visit consistent with [facility]?s Notice of Privacy Practices. History of Present Illness Cydney Sullivan is a 33 year old female who is scheduled today at the request of for New Patient Evaluation (Eval for blood in stool from last week (hemorrhoids)/C/o abdominal pain ). Patient is a 33-year-old female presenting with hematochezia, abdominal pain, and dysuria. Approximately one week ago, patient noticed blood in her stool, prompting a visit to urgent care. She was diagnosed with hemorrhoids and prescribed a topical hydrocortisone cream 2.5%, which she applied twice daily. Since initiating treatment, she reports resolution of hematochezia but continues to experience abdominal pain. She was given pepcid as needed. She denies any history of constipation, straining, or pushing during bowel movements and describes her stools as normal in consistency. She denies any history of childbirth. Patient describes the abdominal pain as a burning sensation located above the umbilicus and in the lower back. The pain is intermittent and sometimes associated with food intake, particularly spicy foods. She reports a significant increase in pain after consuming a edison pickle, which led her to seek medical attention. She has since been eating a light diet consisting of pulses, rice, chapati, and vegetables, which she notes sometimes alleviates the pain. However, she experienced a burning sensation after eating papaya and poha this morning. She denies any history of similar symptoms prior to this episode. In addition to abdominal pain, patient reports a burning sensation during urination over the past two days. She underwent a urine test at urgent care, which was negative for infection. She denies any other medical history, surgeries, or current medications. She has been in the area for seven months and does not have a primary care physician. Patient denies any family history of gastrointestinal issues, including stomach, liver, pancreas, intestine, or colon problems. She mentions that her father experienced abdominal pain many years ago, but it was not severe enough to require hospitalization or ongoing medication. Past Diagnostic Results: - Urine Test (Last Week): Negative for infection. Review of Symptoms Trouble swallowing, heartburn, regurgitation, chest pain, early satiety, nausea, vomiting, abdominal pain, bloating, bloody stool, constipation, diarrhea, night sweats, fevers, or changes in weight. Negative for known history of IBD, colon cancer, gastric/ liver/ pancreas/ intestine issues in the family Constitutional: (-) fever Gastrointestinal: (+) epigastric abdominal pain, (+) epigastric burning, (+) mild nausea, (-) vomiting Genitourinary: (+) burning with urination Musculoskeletal: (-) joint pain, (-) leg swelling Skin: (-) rash Past Medical and Surgical History, Social and Family history, Medications list No past medical history on file. No past surgical history on file. No family history on file. Current Outpatient Medications Medication Sig Dispense Refill famotidine (PEPCID) 40 mg tablet omeprazole (PRILOSEC) 20 mg capsule Take 1 capsule by mouth once daily. 90 capsule 0 No current facility-administered medications for this visit. ALLERGIES Not on File Physical Examination BP 125/77 (BP Site: Right Arm, BP Position: Sitting, BP Cuff Size: Regular Adult) Pulse 97 Ht 162.6 cm (5' 4") Wt 61 kg (134 lb 7.7 oz) BMI 23.08 kg/m? General Appearance: well appearing, alert, pleasant, in no acute distress Eyes: PERRLA, no scleral icterus Lungs:no accessory muscle use Heart: regular rate Abdomen: not distended, normal bowel sounds, soft and depressible, no guarding or rebound Rectal exam: Deferred Extremities: no edema Skin: warm and dry Neuro:alert, oriented x 3, moving extremities Recent labs, imaging and Endoscopy reviewed No data to display No data to display No results found for: TSH Impression 1. Epigastric pain (R10.13) Gastroesophageal reflux disease without esophagitis (K21.9) Epigastric pain with burning sensation, exace (more content not included)... Normal [facility] CO2 post dose urea Qn (Exhl gas) Positive Abnormal Negative [facility] Comment on above: Order Comment: Speci men Type: BREATHOrdering Facility: [facility] [facility] Address: [address] [place] [address] Result Comment: Urea Breath Test is used as an aid in diagnosis of current infection with Helicobacter pylori. False positive results may occur in infection with Helicobacter heilmannii or contamination with other urease-producing bacteria. False negative results may be seen in patients with hypochlorhydria. Clinical correlation is required. Performed By: #### 2 [id number] ####[facility] LABCLIA [id number] [place] [address] [place] Vital Signs Date Time Vital Sign Value Performing Clinician Sapna coffman 08-22-2024 14:05-0400 Body mass index (BMI) [Ratio] 22.31 kg/m2 [employer] Work Phone: [facility] 08-22-2024 14:05-0400 Body weight 58.97 kg Ashley [employer] Work Phone: [facility] 08-22-2024 14:05-0400 Diastolic blood pressure 77 mm[Hg] Ashley Topete DO Work Phone: [facility] 08-22-2024 14:05-0400 Heart rate 90 /min Ashley Topete DO Work Phone: [facility] 08-22-2024 14:05-0400 Systolic blood pressure 114 mm[Hg] Ashley Topete DO Work Phone: [facility] 06-15-2024 09:48-0400 Body height 162.6 cm Alex Bautista MD Work Phone: [facility] 06-15-2024 09:48-0400 Body mass index (BMI) [Ratio] 23.08 kg/m2 Alex Bautista MD Work Phone: [facility] 06-15-2024 09:48-0400 Body weight 61 kg Alex Bautista MD Work Phone: [facility] 06-15-2024 09:48-0400 Diastolic blood pressure 77 mm[Hg] Alex Bautista MD Work Phone: [facility] 06-15-2024 09:48-0400 Heart rate 97 /min Alex Bautista MD Work Phone: [facility] 06-15-2024 09:48-0400 Systolic blood pressure 125 mm[Hg] Alex Bautista MD Work Phone: [facility] Encounters Encounter Date Encounter Type Care Provider Facility Start: 01-01-2025 ambulatory Daniel Reynolds [facility] Start: 12-22-2024 End: 12-22-2024 ambulatory Daniel Reynolds Facility:[facility] Start: 11-06-2024 End: 11-06-2024 ambulatory ASHLEY P TOPETE Facility:[facility] Start: 09-20-2024 Encounter for genera l adult medical examination without abnormal findings Daniel Reynolds [facility] Start: 09-06-2024 End: 09-08-2024 ambulatory Ashley P Topete DO Work Phone: Neurology Comment on above: MRI scans and ongoin g condition Start: 2024 ambulatory ASHLEY TOPETE Facility:[facility] Start: 2024 End: 2024 Subsequent hospital visit by physician Mri Radio [facility] Wstr (I-Stat/1.5t) Work Phone: Radiology Comment on above: New onset headache [ R51.9] Start: 08-29-2024 End: 09-05-2024 ambulatory Ashley Topete DO Work Phone: Neurology Comment on above: Regarding medication update Visit Start: 08-29-2024 End: 09-05-2024 E-mail encounter from caregiver Ashley Topete DO Work Phone: Neurology Start: 08-24-2024 End: 08-24-2024 ambulatory ASHLEY TOPETE Facility:[facility] Start: 08-22-2024 End: 08-22-2024 Patient encounter procedure Ashley Topete DO Work Phone: Neurology Comment on above: New onset headache ( Primary Dx); Vision disturbance; Migraine with persistent visual aura; Tinnitus, bilateral; Tingling of face; Pulsatile tinnitus, right ear; Thunderclap headache; Atypical facial pain; Ear pain, bilateral Start: 08-22-2024 End: 08-22-2024 ambulatory ASHLEY TOPETE Facility:[facility] Start: 08-17-2024 End: 10-24-2024 Telephone encounter Shubham Chirinos MD Work Phone: [facility] Comment on above: 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) Start: 08-11-2024 End: 08-11-2024 Office outpatient new 45 minutes Reynaldo Lainez MD Work Phone: Otolaryngology Comment on above: Referred otalgia of right ear (Primary Dx); Tinnitus, right ear; Referred otalgia of left ear; Migraine variant Start: 08-11-2024 End: 08-11-2024 ambulatory REYNALDO LAINEZ Facility:[facility] Start: 08-08-2024 End: 08-08-2024 ambulatory Katelyn Arauz RN [facility] Start: 08-08-2024 End: 08-08-2024 Patient encounter procedure Katelyn Arauz RN [facility] Start: 08-08-2024 End: 08-08-2024 Telephone encounter Antionette Keyes PA-C Work Phone: [facility] [place] Comment on above: Cancelled Appointmen t Start: 08-01-2024 End: 08-02-2024 ambulatory Alex Bautista MD Work Phone: Gastroenterology Comment on above: stool test Start: 08-01-2024 End: 08-02-2024 E-mail encounter from caregiver Alex Bautista MD Work Phone: Gastroenterology Start: 07-12-2024 End: 07-12-[address] Daniel Reynolds MD Work Phone: [facility] Work Phone: Start: 07-12-2024 End: 07-12-[address] Daniel Reynolds MD -Laboratory [facility] Start: 07-12-2024 End: 07-12-2024 ambulatory Daniel Reynolds Facility:[facility] Start: 06-26-2024 End: 06-27-2024 ambulatory Alex Bautista MD Work Phone: Gastroenterology Comment on above: Regarding medicine Start: 06-24-2024 End: 06-27-2024 ambulatory Alex Bautista MD Work Phone: Gastroenterology Comment on above: Regarding Medicine Start: 06-22-2024 End: 06-22-2024 ambulatory ALEX BAUTISTA Facility:[facility] Start: 06-21-2024 End: 08-08-2024 Follow-up encounter Alex Bautista MD Work Phone: Gastroenterology Start: 06-15-2024 End: 06-15-2024 Patient encounter procedure Alex Bautista MD Work Phone: Gastroenterology Comment on above: Epigastric pain (Gayle regan Dx); Gastroesophageal reflux disease without esophagitis; Hematochezia Start: 06-15-2024 ambulatory [facility]el ABELIL Facility:[facility] Procedures Date Procedure Procedure Detail Performing Clinician Start: 2024 Mri brain brain stem w/o w/contrast material Ashley Topete DO Work Phone: Plan of Treatment Date Care Activity Detail Author Start: 09-05-2063 RSV Immunization for Adults (1 - 1-dose 75+ series) RSV Immunization for Adults (1 - 1-dose 75+ series) [facility] Start: 2038 Zoster Vaccines (1 of 2) Zoster Vaccines (1 of 2) [facility] Start: 07-12-2034 DTaP/Tdap/Td Vaccines (2 - Td or Tdap) DTaP/Tdap/Td Vaccines (2 - Td or Tdap) [facility] Start: 07-12-2034 Urine microalbumin profile DTaP,Tdap,Td Vaccine (2 - Td or Tdap) [facility] Start: 12-04-2024 End: 12-04-2024 Patient encounter procedure 12/04/2024 8:00 AM EDT Office Visit Neurology [address] [place] [address] Ashley Topete DO [address] [place] [address] 2 month followw up headaches Neurology Comment on above: 2 month followw up headaches Start: 11-06-2024 End: 11-06-2024 Patient encounter procedure 11/06/2024 11:00 AM EDT Office Visit Neurology [address] [place] [address] Ashley Topete DO [address] [place] [place], [place] [id number] 2 month followw up headaches Neurology Comment on above: 2 month followw up headaches Start: 10-16-2024 COVID-19 Vaccine ( season) COVID-19 Vaccine () [facility] Start: 10-16-2024 Influenza vaccination Influenza Vaccine (#1) [facility] Start: 10-09-2024 End: 10-09-2024 Patient encounter procedure 10/09/2024 9:30 AM EDT Office Visit [facility] Neurology [address] [place] [address] Abdullahi Nolan MD [address] [place] [phone] Migraines [facility] Neurology Comment on above: Migraines Start: 09-13-2024 End: 09-13-2024 ambulatory 09/13/2024 9:00 AM EDT [facility] [address] [place] [address] Alex Bautista MD [address] [place] [address] Epigatric Pain Gastroenterology Comment on above: Epigatric Pain Start: 09-07-2024 End: 09-07-2024 ambulatory 09/07/2024 10:00 AM EDT OT/PT/Speech Visit [facility] [address] [place] [address] Gilberto Ferreira PT Ear ringing / popping, pain near ear and in head [facility] Comment on above: Ear ringing / popping, pain near ear and in head Start: 08-29-2024 End: 08-29-2024 ambulatory 08/29/2024 11:30 AM EDT [facility] [id number] [place] [address] [address] [place] [address] Alex Bautista MD [address] [place] [address] Epigastric Pain Gastroenterology Comment on above: Epigastric Pain Start: 08-28-2024 End: 08-28-2024 Patient encounter procedure 08/28/2024 9:00 AM EDT Office Visit [facility] Neurology [address] [place] [address] [place] [address] Abdullahi Nolan MD [address] [place] [address] Migraines [facility] Neurology Comment on above: Migraines Start: 08-22-2024 End: 11-21-2024 Creatinine and Glomerular filtration rate.predicted panel - Serum, Plasma or Blood CREATININE BLD Lab Routine New onset headache Expected: 08/22/2024, Expires: 11/21/2024 [facility] Comment on above: Expected: 08/22/2024, Expires: Start: 08-11-2024 End: 08-11-2024 Patient encounter procedure 08/11/2024 9:45 AM EDT Office Visit Otolaryngology [address] [id number] [place] [address] [address] [id number] RT EAR TINGLING/PRESSURE Otolaryngology Comment on above: RT EAR TINGLING/PRESSURE Start: 08-08-2024 End: 11-07-2024 EXTRA DARLYN-LITZY CONTAINER PERFORMABLE [facility] Comment on above: Expected: 08/08/2024, Expires: Start: 08-08-2024 End: 11-07-2024 EXTRA ECOFIX CONTAINER PERFORMABLE [facility] Comment on above: Expected: 08/08/2024, Expires: Start: 07-27-2024 End: 07-27-2024 Patient encounter procedure 07/27/2024 10:30 AM EDT Office Visit Gastroenterology [facility] [address] [place] [address] Alex Bautista MD [facility] [address] [place] [address] Follow up discuss medication Gastroenterology Comment on above: Follow up discuss medication Start: 06-21-2024 End: 09-20-2024 Choriogonadotropin ( test) [Presence] in Urine HCG, QUALITATIVE, URINE Lab Routine Helicobacter pylori gastritis Possible Expected: 06/21/2024, Expires: 09/20/2024 [facility] Work Phone: Comment on above: Expected: 06/21/2024, Expires: Start: 06-15-2024 End: 09-14-2024 Helicobacter pylori [Quantitative] in Stomach by urea breath test BREATH TEST FOR HELICOBACTER PYLORI Lab Routine Epigastric pain Gastroesophageal reflux disease without esophagitis Expected: 06/15/2024, Expires: 09/14/2024 [facility] Work Phone: Comment on above: Expected: 06/15/2024, Expires: Start: 10-17-2023 Covid-19 Vaccine ( season) Covid-19 Vaccine ( season) [facility] Start: 2018 Screening for malignant neoplasm of cervix [facility] Start: 2009 Screening for malignant neoplasm of cervix [facility] Start: 09-05-2007 Hepatitis B Vaccine (1 of 3 - 19+ 3-dose series) Hepatitis B Vaccine (1 of 3 - 19+ 3-dose series) [facility] Start: 09-05-2007 Hepatitis B Vaccines (1 of 3 - 19+ 3-dose series) Hepatitis B Vaccines (1 of 3 - 19+ 3-dose series) [facility] Start: 09-05-2007 Urine microalbumin profile DTaP,Tdap,Td Vaccine (1 - Tdap) [facility] Start: 2006 Anxiety Screening Anxiety Screening [facility] Start: 2006 Depression Screening Depression Screening [facility] Start: 2006 Hepatitis C screening Hepatitis C Screening [facility] Start: 2006 HIV screening HIV Screening [facility] Start: 2001 Varicella vaccination Varicella Vaccines (1 of 2 - 13+ 2-dose series) [facility] Start: 2000 Depression Screening Depression Screening [facility] Start: 1989 MMR Vaccines (1 of 1 - Standard series) MMR Vaccines (1 of 1 - Standard series) [facility] Start: 1988 HIV screening HIV Screening [facility] End: 08-12-2025 HEARING TEST/AUDIOGRAM HEARING TEST/AUDIOGRAM Audiology Routine Referred otalgia of right ear Tinnitus, right ear 1 Occurrences starting 08/11/2024 until 08/12/2025 [facility] Work Phone: Comment on above: 1 Occurrences starting 08/11/2024 until 08/12/2025 Helicobacter pylori Ag [Presence] in Stool by Immunoassay HELICOBACTER PYLORI ANTIGEN BY EIA, STOOL Microbiology Routine Helicobacter pylori gastritis 08/07/2024 8:40 AM EDT [facility] End: 09-21-2025 MR Brain WO and W contrast IV MRI BRAIN WO/W IVCON Radiology Routine New onset headache Vision disturbance Migraine with persistent visual aura Tinnitus, bilateral Tingling of face Pulsatile tinnitus, right ear Thunderclap headache Atypical facial pain Ear pain, bilateral 1 Occurrences starting 08/22/2024 until 09/21/2025 [facility] Work Phone: Comment on above: 1 Occurrences starting 08/22/2024 until 09/21/2025 End: 09-21-2025 MRA Head veins WO contrast MRV BRAIN WO IVCON Radiology Routine New onset headache Vision disturbance Migraine with persistent visual aura Tinnitus, bilateral Tingling of face Pulsatile tinnitus, right ear Thunderclap headache Atypical facial pain Ear pain, bilateral 1 Occurrences starting 08/22/2024 until 09/21/2025 [facility] Comment on above: 1 Occurrences starting 08/22/2024 until 09/21/2025 End: 09-21-2025 MRA Head vessels WO contrast MRA BRAIN WO IVCON Radiology Routine New onset headache Vision disturbance Migraine with persistent visual aura Tinnitus, bilateral Tingling of face Pulsatile tinnitus, right ear Thunderclap headache Atypical facial pain Ear pain, bilateral 1 Occurrences starting 08/22/2024 until 09/21/2025 [facility] Comment on above: 1 Occurrences starting 08/22/2024 until 09/21/2025 Immunizations Immunization Date Immunization Notes Care Provider Dragan bishop 12-31-2023 influenza virus vacc ine, unspecified formulation Ashley Topete DO Work Phone: [facility] Payers Date Payer Category Payer Self-pay 2024 [employer] Blue Shield [id number] 2024 Unknown [id number] 2023 Blue Cross Blue Shie ld Managed Care - O ANTHJFEFERSON BLUE CROSS [id number] Unknown JOSHUA [id number] Unknown [id number] Unknown [id number] Unknown [id number] Social History Date Type Detail Facility [facility] Start: 06-15-2024 History of Social function [facility] Start: 06-15-2024 Area Deprivation Index [facility] National Score (1-10 0), lower number is lower risk 35 [facility] Start: 1988 Sex assigned at Not on file [facility] Start: 1990 Sex Assigned At Female [facility] Start: 08-08-2024 Sex Female (finding) [facility] Clinical Notes 06-15-2024 to 11-06-2024 Regan Irene, RT(R) - 2024 9:00 AM EDTAddendum Note - Ashley Topete DO - 08/22/2024 3:06 PM EDTAddendum Note - Ashley Topete DO - 08/22/2024 3:06 PM EDTPatient Instructions Note Date & Type Note Facility 11-06-2024 Note HNO ID: [id number] Author: ASHLEY TOPETE DO Service: ? 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 She describes no other IIH type symptoms (denies pulsatile tinnitus, TVOs, or ongoing headaches) and I see no findings suggestive of IIH on review of her MRI, but we may consider checking opening pressure pending neuro-ophthalmology evaluation for her visual disturbances. PLAN: (Please see typed patient instructions for detailed instructions) ---> Preventive Treatment: -Lamictal trial. -Continue Magnesium. ---> Consult to neuro-ophthalmology for her complex visual disturbances. 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 ---> Discussed potential for future LP to check opening pressure, although overall symptoms and MRI findings do not suggest IIH. We may still consider this to definitively exclude it though. ---> Follow-up: 3 months. Last visit: 08/22/24 Interval Headache Hx: Still has visual disturbances (shimmering) all the time. Sometimes a couple lines, sometimes a few spots. Has been weaning off Gabapentin. No help and had some swelling. Took 300 mg tid yesterday, none today. New Labs/Imaging: Impression IMPRESSION: No acute intracranial abnormality. No mass or pathologic enhancement. Patent intracranial cerebral arterial circulation. No high-grade flow-limiting luminal stenosis. Persistent primitive left trigeminal artery. Patent dural venous sinuses by [id number] MRV. Wireless Technician: LASHAY Transcribe Date/Time: 2024 9:53A Dictated by : PIEDAD DILLARD DO This examination was interpreted and the report reviewed and electronically signed by: PIEDAD DILLARD DO on 2024 10:19AM EST Results-Findings * * *Final Report* * * DATE OF EXAM: 2024 9:49AM [facility] 0295 - MRI BRAIN WO/W IVCON / PROCEDURE REASON: multiple diagnoses * * * * Physician Interpretation * * * * EXAMINATION: MRA BRAIN WO IVCON, MRV BRAIN WO IVCON, MRI BRAIN WO/W IVCON CLINICAL HISTORY: New onset headache. Visual disturbances. Tinnitus. Facial tingling. Facial pain. TECHNIQUE: Routine MRI brain protocol without and with intravenous contrast including diffusion and gradient echo images. Intracranial 3D [id number] MRA with post-processing performed at the modality and 2D multiplanar and 3D maximum intensity projections were created, reviewed and archived. Brain MRV without intravenous contrast Contrast: IV administration of 6 ml of Elucirem COMPARISON: None. RESULT: BRAIN: Acute Change: There is no evidence of restricted diffusion to suggest an acute infarct. Hemorrhage: No evidence of prior parenchymal hemorrhage on the susceptibility weighted images. Mass Lesion/ Mass Effect: No evidence of an intracranial mass or extra-axial fluid collection. No pathologic intracranial enhancement. No significant mass effect. Chronic Change: The white matter is within normal limits of signal intensity for age. Parenchyma: No significant volume loss for age. The brain parenchyma is otherwise within normal limits of signal intensity and morphology. Ventricles: Normal caliber and morphology. Skull Base: Hypothalamic and pituitary region are grossly normal. Craniocervical junction is normal. No significant marrow replacement process. Vasculature: Major intracranial arterial structures, and dural venous sinuses show typical flow void, suggesting patency by spin echo criteria. Other: The visualized paranasal sinuses and mastoid air cells are clear. The orbits and extracranial soft tissues are unremarkable. INTRACRANIAL MRA: Intracranial ICAs are normal in course and caliber. No high-grade luminal stenosis. Left A1 segment is slightly dominant in luminal caliber in both A1 segments are patent imaged ACAs are patent. MCAs are normal in course and caliber without proximal large vessel occlusion or high-grade luminal stenosis. Intradural vertebral arteries and basilar artery are patent. Persistent primitive left trigeminal artery. senior treasury analyst are patent without high-grade luminal stenosis. VENOGRAM: Patency: The superior sagittal sinus, bilateral internal cerebral veins, vein of Bernard, straight sinus, bilateral transverse and sigmoid sinuses, and bilateral jugular bulbs demonstrate normal intraluminal flow-related signal without tubular or occlusive filling defect to sug (more content not included)... [facility] 2024 History of Present illness Narrative Radiology Service Progress Note DATE OF SERVICE: 2024 TIME: 9:24 AM PATIENT IDENTITY VERIFICATION COMPLETED USING TWO (2) STANDARD IDENTIFIERS: Name and Date of confirmed by patient verbally. FALL SCREENING: Has the patient had 2 falls in the last year or 1 fall with injury or currently using an Ambulatory Assistive Device (Walker, Cane, Wheelchair, Crutches, etc.)? No PATIENT GENDER DATA: Assigned female at . status: : No status: NO. PATIENT RELEVANT IMPLANT DATA REVIEWED: Yes PATIENT PRESENTS WITH AN IMPLANTABLE OR ATTACHED SWITCHBOARD AND CONTROL ROOM OPERATOR: No ALLERGIES: Reviewed and unchanged CONTRAST ALLERGY: NO. EXAM: MRI - CONTRAST TYPE: GROUP II PERIPHERAL IV DATA: Ambulatory: A peripheral IV was started in the Left upper extremity with a Angio cath: 22 gauge. RADIOLOGY DEPARTMENT: MR; Exam(s) Completed: Head: Routine Brain [place] MRA Sagittal Sinus MRV. Aromatherapy Administered: No SIGNATURE: RT Glo(Lilliana) PATIENT NAME: Cydney Sullivan DATE: 2024 TIME: 9:24 AM documented in this encounter [facility] 2024 Note HNO ID: [id number] Author: REGAN IRENE RT(R) Service: ? Author Type: Technologist Type: Progress Notes Filed: 2024 09:24 Note Text: Radiology Service Progress Note DATE OF SERVICE: 2024 TIME: 9:24 AM PATIENT IDENTITY VERIFICATION COMPLETED USING TWO (2) STANDARD IDENTIFIERS: Name and Date of confirmed by patient verbally. FALL SCREENING: Has the patient had 2 falls in the last year or 1 fall with injury or currently using an Ambulatory Assistive Device (Walker, Cane, Wheelchair, Crutches, etc.)? No PATIENT GENDER DATA: Assigned female at . status: : No status: NO. PATIENT RELEVANT IMPLANT DATA REVIEWED: Yes PATIENT PRESENTS WITH AN IMPLANTABLE OR ATTACHED SWITCHBOARD AND CONTROL ROOM OPERATOR: No ALLERGIES: Reviewed and unchanged CONTRAST ALLERGY: NO. EXAM: MRI - CONTRAST TYPE: GROUP II PERIPHERAL IV DATA: Ambulatory: A peripheral IV was started in the Left upper extremity with a Angio cath: 22 gauge. RADIOLOGY DEPARTMENT: MR; Exam(s) Completed: Head: Routine Brain [place] MRA Sagittal Sinus MRV. Aromatherapy Administered: No SIGNATURE: Regan Irene, RT(R) PATIENT NAME: Cydney Sullivan DATE: 2024 TIME: 9:24 AM [facility] 08-22-2024 Note Addended by: ASHLEY TOPETE on: 08/22/2024 03:06 PM Modules accepted: Orders [facility] 08-22-2024 Miscellaneous Notes Addended by: ASHLEY TOPETE on: 08/22/2024 03:06 PM Modules accepted: Orders documented in this encounter [facility] 08-22-2024 Note HNO ID: [id number] Author: ASHLEY TOPETE DO Service: ? Author Type: Physician Type: Progress Notes Filed: 08/22/2024 15:06 Note Text: Previous records (physician notes, laboratory reports, and radiology reports) and imaging studies were reviewed and summarized as below. My recommendations will be communicated back to the patient's primary care physician and/or consulting physician(s) by way of shared medical record or letter via US mail. Thank you for allowing me to contribute to the care of your patient. ASSESSMENT: 33 year old female with history significant for migraine, ?TMJ dysfunction, with new headaches, facial pain, ear pains, with a variety of new neurologic symptoms including a persistent visual shimmering, R>L tinnitus and pulsatile tinnitus, tingling in R anterior ear/jaw area. The visual shimmering could suggest persistent visual aura, but this would be atypical to begin abruptly without a past migraine history, and her current headaches do not technically fully fit migraine criteria. Notably, symptoms began shortly after taking tetracycline in June so we'll also evaluate for IIH given her constellation of symptoms with MRI. There could be some TMJ contribution, but unlikely the sole source of her constellation of symptoms so further neuroimaging is warranted. PLAN: (Please see typed patient instructions for detailed instructions) ---> Acute Treatment: -Medrol dose pack. ---> Preventive Treatment: -If Medrol doesn't help break up symptoms, she'll message and we'll add a preventive. Would start with low dose Amitriptyline or Gabapentin. ---> Recent labs from PCP to be faxed in and we'll add what may be missing (need ESR, CRP, CMP, CBC, TSH). ---> Brain MRI w/wo, MRA and MRA wo. ---> Consult to ophthalmology for her visual disturbances. ---> Headache education was done. Discussed medication side effects, adverse reactions and drug interactions. ---> Follow-up: 2-3 months. REFERRING PHYSICIAN: PCP Accompanied by: Spouse CC: Headache and Facial Pain HxCC: 33 year old female with history significant for migraine, ?TMJ dysfunction, who presents for evaluation of new headaches, facial pain, ear pains, with a variety of new neurologic symptoms. HEADACHE TYPE 1: Onset: Early June, a few days after taking some medications for H. Pylori infection (tetracycline, omeprazole). Location: Holocephalic, throughout face, around eyes, in R>L ears. Description: Pressure. Characteristics: Duration/ Frequency: 30 overall headache days per month which includes variable intensity. Timing: Less in morning. Time to peak pain intensity: Variable. Associated symptoms: Aura: Has a continuous shimmering sensation in vision. Denies migrainous features. Some ringing in ears of some variety which is hard to describe but describes it as a sound in the head. Relieving factors: ? Triggers: ? CURRENT ACUTE TREATMENTS: ---> None CURRENT PREVENTIVES: ---> None Prior Therapies Duration of Use Dose Reason for Discontinuation Over the Counter Medications Acetaminophen (Tylenol) Acetaminophen/Aspirin/Caffeine (Excedrin, Goody?s) Aspirin Ibuprofen (Advil, Motrin) Naproxen sodium (Aleve) HEADACHE SCORES: 08/22/2024 Headache Questions ID Migraine Screener: 3 (Positive) ER visits in the last year: 2 Hospital stays in the last year: 0 Limited ADLs in the last month: 30 Days missed from work or school in the last month: 0 Days headache pain free in the last month: 0 Days per month with ALL of the following symptoms - decreased productivity, light sensitivity and nausea: 30 PRN medication usage in the last month: 2 08/22/2024 HIT-6 HIT-6 65 (Severe impact) 08/22/2024 CONNIE - 2/7 SCORES CONNIE-2 Score 4 08/22/2024 Migraine Specific QOL - Higher scores indicate better HRQL Role Function-Restrictive Transformed Score (range: 0-100) 42.86 Role Function-Preventive Transformed Score (range: 0-100) 60 Emotional Function Transformed Score (range: 0-100) 53.33 PRIOR EVALUATIONS: -ENT RECENT LABS: Latest Ref Rng 06/22/2024 Protein, Total 6.3 - 8.0 g/dL 7.1 Albumin 3.9 - 4.9 g/dL 4.1 Calcium 8.5 - 10.2 mg/dL 9.2 Bilirubin, Total 0.2 - 1.3 mg/dL 0.3 Alkaline Phosphatase 34 - 123 U/L 83 AST 13 - 35 U/L 12 (L) ALT 7 - 38 U/L 7 Glucose 74 - 99 mg/dL 99 BUN 7 - 21 mg/dL 12 Creatinine 0.58 - 0.96 mg/dL 0.83 Sodium 136 - 144 mmol/L 136 Potassium 3.7 - 5.1 mmol/L 3.8 Chloride 98 - 107 mmol/L 101 CO2 22 - 30 mmol/L 28 Anion Gap 8 - 15 mmol/L 7 (L) eGFR >=60 mL/min/1.73m? 94 Legend: (L) Low RECENT IMAGING/DIAGNOSTICS: None PMH: No past medical history on file. PSH: No past surgical history on file. CURRENT MEDS: No current outpatient medications on file. No current facility-administered medications for this visit. ALL (more content not included)... [facility] 08-22-2024 History of Present illness Narrative Images from the original note were not included. Previous records (physician notes, laboratory reports, and radiology reports) and imaging studies were reviewed and summarized as below. My recommendations will be communicated back to the patient's primary care physician and/or consulting physician(s) by way of shared medical record or letter via [place] mail. Thank you for allowing me to contribute to the care of your patient. ASSESSMENT: 33 year old female with history significant for migraine, ?TMJ dysfunction, with new headaches, facial pain, ear pains, with a variety of new neurologic symptoms including a persistent visual shimmering, R>L tinnitus and pulsatile tinnitus, tingling in R anterior ear/jaw area. The visual shimmering could suggest persistent visual aura, but this would be atypical to begin abruptly without a past migraine history, and her current headaches do not technically fully fit migraine criteria. Notably, symptoms began shortly after taking tetracycline in June so we'll also evaluate for IIH given her constellation of symptoms with MRI. There could be some TMJ contribution, but unlikely the sole source of her constellation of symptoms so further neuroimaging is warranted. PLAN: (Please see typed patient instructions for detailed instructions) ---> Acute Treatment: -Medrol dose pack. ---> Preventive Treatment: -If Medrol doesn't help break up symptoms, she'll message and we'll add a preventive. Would start with low dose Amitriptyline or Gabapentin. ---> Recent labs from PCP to be faxed in and we'll add what may be missing (need ESR, CRP, CMP, CBC, TSH). ---> Brain MRI w/wo, MRA and MRA wo. ---> Consult to ophthalmology for her visual disturbances. ---> Headache education was done. Discussed medication side effects, adverse reactions and drug interactions. ---> Follow-up: 2-3 months. REFERRING PHYSICIAN: PCP Accompanied by: Spouse CC: Headache and Facial Pain HxCC: 33 year old female with history significant for migraine, ?TMJ dysfunction, who presents for evaluation of new headaches, facial pain, ear pains, with a variety of new neurologic symptoms. HEADACHE TYPE 1: Onset: Early June, a few days after taking some medications for H. Pylori infection (tetracycline, omeprazole). Location: Holocephalic, throughout face, around eyes, in R>L ears. Description: Pressure. Characteristics: Duration/ Frequency: 30 overall headache days per month which includes variable intensity. Timing: Less in morning. Time to peak pain intensity: Variable. Associated symptoms: Aura: Has a continuous shimmering sensation in vision. Denies migrainous features. Some ringing in ears of some variety which is hard to describe but describes it as a sound in the head. Relieving factors: ? Triggers: ? CURRENT ACUTE TREATMENTS: ---> None CURRENT PREVENTIVES: ---> None Prior Therapies Duration of Use Dose Reason for Discontinuation Over the Counter Medications Acetaminophen (Tylenol) Acetaminophen/Aspirin/Caffeine (Excedrin, Goody s) Aspirin Ibuprofen (Advil, Motrin) Naproxen sodium (Aleve) HEADACHE SCORES: 08/22/2024 Headache Questions ID Migraine Screener: 3 (Positive) ER visits in the last year: 2 Hospital stays in the last year: 0 Limited ADLs in the last month: 30 Days missed from work or school in the last month: 0 Days headache pain free in the last month: 0 Days per month with ALL of the following symptoms - decreased productivity, light sensitivity and nausea: 30 PRN medication usage in the last month: 2 08/22/2024 HIT-6 HIT-6 65 (Severe impact) 08/22/2024 CONNIE - 2/7 SCORES CONNIE-2 Score 4 08/22/2024 Migraine Specific QOL - Higher scores indicate better HRQL Role Function-Restrictive Transformed Score (range: 0-100) 42.86 Role Function-Preventive Transformed Score (range: 0-100) 60 Emotional Function Transformed Score (range: 0-100) 53.33 PRIOR EVALUATIONS: -ENT RECENT LABS: Latest Ref Rng 06/22/2024 Protein, Total 6.3 - 8.0 g/dL 7.1 Albumin 3.9 - 4.9 g/dL 4.1 Calcium 8.5 - 10.2 mg/dL 9.2 Bilirubin, Total 0.2 - 1.3 mg/dL 0.3 Alkaline Phosphatase 34 - 123 U/L 83 AST 13 - 35 U/L 12 (L) ALT 7 - 38 U/L 7 Glucose 74 - 99 mg/dL 99 BUN 7 - 21 mg/dL 12 Creatinine 0.58 - 0.96 mg/dL 0.83 Sodium 136 - 144 mmol/L 136 Potassium 3.7 - 5.1 mmol/L 3.8 Chloride 98 - 107 mmol/L 101 CO2 22 - 30 mmol/L 28 Anion Gap 8 - 15 mmol/L 7 (L) eGFR >=60 mL/min/1.73m 94 Legend: (L) Low RECENT IMAGING/DIAGNOSTICS: None PMH: No past medical history on file. PSH: No past surgical history on file. CURRENT MEDS: No current outpatient medications on file. No current facility-administered medications for this visit. ALLERGIES: ALLERGIES Not on File FMH: No family history on file. SOCIAL: REVIEW OF SYSTEMS: Review of Systems Constitutional Positive for Fevers Negative for Night Sweats, Weight Gain, Weight Loss and Fatigue Eyes Positive for Vision loss or change Negative for Change in vison not corrected by glasses Hent Positive for Tinnitus Negative for Hearing Loss, Difficulty Swallowing and Recent change in speech or voice Cardiovascular Negative for Chest Pain, Lightheadedness and Leg pain with walking Respiratory Negative for SOB at rest, SOB with exertion, Cough, Wheezing and Snoring GI Negative for Blood in Stool, Abdominal Pain, Diarrhea, Constipation, Nausea/Vomiting and Heartburn Negative for Urgency, Impotence, Incontinence and Sexual Dysfunction Endocrine Negative for Heat Intolerance, Excessive Thirst and Menstrual Cycle Irregularities Musculoskeletal Negative for Back Pain, Joint Swelling, Stiff Joints and Muscle Pain Integumentary Negative for Rashes, Itching, Other Lesions and Hair Changes Heme/Lymph Negative for Prolonged Bleeding, Easy Bruising and Swelling of Arm or Leg Allergy/Immunologic Negative for Nasal Congestion and Swollen Nodes Neurologic Positive for Headache and Numbness/Tingling Negative for Memory Problems, Weakness, Double Vision, Trouble Swallowing and Slurred Speech Psychiatric Negative for Stress or Conflicts, Depression, Anxiety, Irritability, Hallucinations and Delusions Patient's Review of Systems has been reviewed with the patient and updated as appropriate. I have reviewed the Aneudy Status Assessment responses and discussed these with the patient: yes. Ashley Topete DO PHYSICAL EXAM: BP 114/77 Pulse 90 Wt 59 kg (130 lb) BMI 22.31 kg/m GEN: Alert. NAD. Normal affect. Cooperative. HEENT: No rhinorrhea, lacrimation or conjunctival injection. No sinus tenderness. Normal mucosa. No temporal artery tenderness. Fundoscopic exam unremarkable. NECK/BACK: No lymphadenopathy. Suboccipital tenderness minimal. Paracervical and upper shoulder musculature/traps tenderness and hypertonicity mild R>L. CV: RRR. No M/G/R/C. RESP: CTA b/l. NEUROLOGICAL: MENTAL STATUS: A+O x 3. Attentive. Thought process and content unremarkable. Follows commands appropriately. Speech fluent. CN: II: Visual owen intact. PERRLA. No Papilledema. III, IV, : EOMI. No ptosis present. V: Symmetric facial sensation to touch. VII: Face symmetric. VIII: Hearing symmetric. No nystagmus. IX, X: Symmetric palatal rise. XI: Symmetric shoulder shrug. XII: Tongue midline. MOTOR: Normal tone. Normal bulk. Finger tap normal. Orbiting absent. Motor symmetric. REFLEXES: RIGHT: LEFT: Biceps 2/4 Biceps 2/4 Brachioradialis 2/4 Brachioradialis 2/4 Triceps 2/4 Triceps 2/4 Patellar 2/4 Patellar 2/4 Achilles 2/4 Achilles 2/4 Negative Bustillo. Negative Troemner. SENSATION: Touch symmetric. CEREBELLAR: Normal F-N-F. No nystagmus. GAIT: Stable primary gait. Ashley Topete DO [facility] [place] [facility] [address] [place] [address] Level of service: New level 4 (45-59 min). Time spent 60 min on the day of service, which included preparing to see the patient, [id number] patient care, completing clinical documentation, obtaining and/or reviewing separately obtained history, performing a medically appropriate examination, counseling and educating the patient/family/caregiver, and ordering medications, tests, or procedures. Medical Decision Making: Medical Decision Making Level: 1 - N/A cc: PCP documented in this encounter [facility] 08-17-2024 Telephone encounter Note Name of caller: Cydney Contact phone number: [phone] Relationship to Patient: patient Provider: Dr. 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 Please contact Cydney and advise. Best time of day caller can be reached: Any Patient advised that office/PCP has 24-48 business hours to return their call: No [facility] 08-17-2024 Miscellaneous Notes Name of caller: Cydney Contact phone number: [phone] Relationship to Patient: patient Provider: Dr. 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 Please contact Cydney and advise. Best time of day caller can be reached: Any Patient advised that office/PCP has 24-48 business hours to return their call: No documented in this encounter [facility] 08-11-2024 Note HNO ID: [id number] Author: REYNALDO LAINEZ MD Service: ? Author Type: Physician Type: Progress Notes Filed: 08/11/2024 09:53 Note Text: OTOLARYNGOLOGY-HEAD AND NECK SURGERY CC: Consultation requested by Dr. durbin for an opinion regarding ear pain. My final recommendations will be communicated back to the requesting physician by way of shared Medical record or letter to requesting physician via [place] mail. Assessment/Plan: 1. Referred otalgia of right ear (H92.01) 2. Referred otalgia of left ear (H92.02) 3. Tinnitus, right ear (H93.11) - Bilateral otalgia and right ear tinnitus likely secondary to temporomandibular joint dysfunction and muscle tension. - Otoscopic examination revealed normal ear anatomy bilaterally. - Ordered audiometric evaluation to rule out any underlying hearing loss. - Referred to a jaw joint dentist and physical therapist for TMJ dysfunction management. 4. Migraine variant (G43.809) - Symptoms consistent with migraine variant, including visual disturbances described as "aura" and pressure sensations in the head and eyes. - Nasal endoscopy performed; no evidence of sinus infection or masses. - Discussed the chronic nature of migraines and the potential for symptoms to last weeks. - Referred to a headache neurologist for further evaluation and management. - Advised continuation of steam inhalation; initiated Flonase nasal spray with expected onset of action in 4-6 weeks to manage mucosal symptoms. - Patient understands and agrees with the treatment plan. HPI: Cydney Sullivan is a 33-year-old female presenting with right ear tinnitus, facial pressure, and visual disturbances. Right Ear Tinnitus: - Onset during H. pylori treatment in May or June. - Persistent despite completing antibiotic course. - ENT evaluation included earwax removal and nasal spray, with no relief. Facial Pressure and Pain: - Describes "very pressure" in the head and face, with associated pain. - Symptoms began after H. pylori treatment. - No personal or family history of migraines. Visual Disturbances: - Reports "moving" or "shimmering" vision, with images not appearing static. - Onset after one week of antibiotic treatment for suspected sinus infection. ALLERGIES Not on File Current Outpatient Medications Medication Sig doxycycline hyclate (VIBRAMYCIN) 100 mg capsule Take 1 capsule by mouth every 12 hours. hydrocortisone 2.5 % cream tetracycline (SUMYCIN) 500 mg cap TAKE 1 CAPSULE BY MOUTH 4 TIMES DAILY FOR 14 DAYS omeprazole (PRILOSEC) 20 mg capsule Take 1 capsule by mouth once daily. omeprazole (PRILOSEC) 40 mg capsule Take 1 capsule by mouth two times a day for 14 days. No current facility-administered medications for this visit. No past medical history on file. No past surgical history on file. Social History: No family history on file. ROS: GENERAL: No weight loss, malaise or fevers. HEENT: Negative for frequent or significant headaches, No changes in hearing or vision, No nasal bleeding, congestion or rhinorrhea, No sore throat or change in voice NECK: Negative for lumps, goiter, pain and significant neck swelling RESPIRATORY: Negative for cough, hemoptysis, wheezing or shortness of breath NEUROLOGIC: Negative for focal numbness or weakness, headaches and dizziness or syncope. SKIN: Negative for lesions, rash, and itching. PHYSICAL EXAM: On physical examination Cydney Sullivan is a well-developed, well nourished female. Her speech is nl and her voice is nl. Mental status revealed patient to be alert and oriented. Mood is appropriate. Details of the physical examination: CRANIAL NERVE EXAM: II: Pupillary reflexes normal III, IV, : EOM normal V: 1,2,3: normal sensation VII: Normal strength in all divisions. VIII: Hearing grossly normal. IX, X: palatal elevation and sensation XI: Shoulder strength normal XII: Tongue mobility normal HEAD AND FACE: Physical examination of the head, neck, external nose, external ears, mouth and face fails to demonstrate any significant abnormality or asymmetry to critical face to face observation. Skin and scalp are normal. EARS: An operating microscope was used to provide complete visualization of the canal, tympanic membrane and middle ear structures. RT Canal: patent RT Drum: intact LT Canal: patent LT Drum: intact NOSE: Examination of the nasal cavity revealed a septum which is dns to the L. The mucosa is pink, and the visible turbinates are nl on anterior rhinoscopy. There is no purulence or polyps. MASTICATION: The teeth appear nl. The lips and gums are without lesions. ORAL CAVITY AND OROPHARYNX: The oral mucosa, hard and soft palates, tongue, tonsil area, and posterior pharyngeal wall are without lesions. LARYNX: Mirror laryngoscopy provided inadequate information as it could not be tolerated, thus a flexible fiber laryngoscopy needed to be performed. The fiberoptic exam is docum (more content not included)... [facility] 08-11-2024 History of Present illness Narrative OTOLARYNGOLOGY-HEAD AND NECK SURGERY CC: Consultation requested by Dr. durbin for an opinion regarding ear pain. My final recommendations will be communicated back to the requesting physician by way of shared Medical record or letter to requesting physician via [place] mail. Assessment/Plan: 1. Referred otalgia of right ear (H92.01) 2. Referred otalgia of left ear (H92.02) 3. Tinnitus, right ear (H93.11) - Bilateral otalgia and right ear tinnitus likely secondary to temporomandibular joint dysfunction and muscle tension. - Otoscopic examination revealed normal ear anatomy bilaterally. - Ordered audiometric evaluation to rule out any underlying hearing loss. - Referred to a jaw joint dentist and physical therapist for TMJ dysfunction management. 4. Migraine variant (G43.809) - Symptoms consistent with migraine variant, including visual disturbances described as "aura" and pressure sensations in the head and eyes. - Nasal endoscopy performed; no evidence of sinus infection or masses. - Discussed the chronic nature of migraines and the potential for symptoms to last weeks. - Referred to a headache neurologist for further evaluation and management. - Advised continuation of steam inhalation; initiated Flonase nasal spray with expected onset of action in 4-6 weeks to manage mucosal symptoms. - Patient understands and agrees with the treatment plan. HPI: Cydney Sullivan is a 33-year-old female presenting with right ear tinnitus, facial pressure, and visual disturbances. Right Ear Tinnitus: - Onset during H. pylori treatment in May or June. - Persistent despite completing antibiotic course. - ENT evaluation included earwax removal and nasal spray, with no relief. Facial Pressure and Pain: - Describes "very pressure" in the head and face, with associated pain. - Symptoms began after H. pylori treatment. - No personal or family history of migraines. Visual Disturbances: - Reports "moving" or "shimmering" vision, with images not appearing static. - Onset after one week of antibiotic treatment for suspected sinus infection. ALLERGIES Not on File Current Outpatient Medications Medication Sig doxycycline hyclate (VIBRAMYCIN) 100 mg capsule Take 1 capsule by mouth every 12 hours. hydrocortisone 2.5 % cream tetracycline (SUMYCIN) 500 mg cap TAKE 1 CAPSULE BY MOUTH 4 TIMES DAILY FOR 14 DAYS omeprazole (PRILOSEC) 20 mg capsule Take 1 capsule by mouth once daily. omeprazole (PRILOSEC) 40 mg capsule Take 1 capsule by mouth two times a day for 14 days. No current facility-administered medications for this visit. No past medical history on file. No past surgical history on file. Social History: No family history on file. ROS: GENERAL: No weight loss, malaise or fevers. HEENT: Negative for frequent or significant headaches, No changes in hearing or vision, No nasal bleeding, congestion or rhinorrhea, No sore throat or change in voice NECK: Negative for lumps, goiter, pain and significant neck swelling RESPIRATORY: Negative for cough, hemoptysis, wheezing or shortness of breath NEUROLOGIC: Negative for focal numbness or weakness, headaches and dizziness or syncope. SKIN: Negative for lesions, rash, and itching. PHYSICAL EXAM: On physical examination Cydney Sullivan is a well-developed, well nourished female. Her speech is nl and her voice is nl. Mental status revealed patient to be alert and oriented. Mood is appropriate. Details of the physical examination: CRANIAL NERVE EXAM: II: Pupillary reflexes normal III, IV, : EOM normal V: 1,2,3: normal sensation VII: Normal strength in all divisions. VIII: Hearing grossly normal. IX, X: palatal elevation and sensation XI: Shoulder strength normal XII: Tongue mobility normal HEAD AND FACE: Physical examination of the head, neck, external nose, external ears, mouth and face fails to demonstrate any significant abnormality or asymmetry to critical face to face observation. Skin and scalp are normal. EARS: An operating microscope was used to provide complete visualization of the canal, tympanic membrane and middle ear structures. RT Canal: patent RT Drum: intact LT Canal: patent LT Drum: intact NOSE: Examination of the nasal cavity revealed a septum which is dns to the L. The mucosa is pink, and the visible turbinates are nl on anterior rhinoscopy. There is no purulence or polyps. MASTICATION: The teeth appear nl. The lips and gums are without lesions. ORAL CAVITY AND OROPHARYNX: The oral mucosa, hard and soft palates, tongue, tonsil area, and posterior pharyngeal wall are without lesions. LARYNX: Mirror laryngoscopy provided inadequate information as it could not be tolerated, thus a flexible fiber laryngoscopy needed to be performed. The fiberoptic exam is documented below. NECK: The neck appears symmetric without scars. On palpation, there are no masses or lymphadenopathy. The thyroid is not palpable and was free of masses. No salivary gland masses or hypertrophy is noted. REVIEW OF RADIOLOGICAL FILMS AND RECORDS: Labs: H. pylori test: Positive for Helicobacter pylori infection Tests: Nasal endoscopy: No evidence of sinus infection or mass, normal examination Reynaldo Lainez MD This note was partially generated using [employer] voice recognition system. 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 Recording using [employer] software for draft documentation of the visit was discussed with the patient/authorized physician relations representative; all questions welcomed and answered. Patient/authorized physician relations representative agreed to proceed PROCEDURE: Flexible Laryngoscopy DIAGNOSIS: post nasal drip INDICATIONS: Mirror laryngoscopy could not be tolerated and a full examination of the upper aerodigestive tract was required. PROCEDURE: Topical anesthesia and vasoconstriction was applied with phenylephrine and 4% lidocaine to both sides of the nose. After waiting an appropriate period of time for anesthesia/vasoconstriction to become effective, a flexible laryngoscope was passed through the both sides of the nose. Nasopharynx, oropharynx, hypopharynx and larynx were examined. FINDINGS: The visualized nasal cavity, nasopharynx and oropharynx were normal without any lesions or masses visualized. No masses or lesions were visualized at the base of tongue, vallecula, epiglottis, aryepiglottic folds, pyriform sinuses, and lateral pharyngeal pickett. True vocal fold movement was intact bilaterally. No lesions visualized. Nasal septum is dns to the right, Inferior turbinates are nl bilaterally, SER and MM clear bilaterally. The patient's airway was widely patent with no evidence of obstruction. Pt tolerated the procedure well, and there were no complications. The procedure was performed by me. Reynaldo Lainez MD Medical Decision Making: Problems: Moderate: New problem with uncertain prognosis Data: Unique source(s) for external note(s) reviewed: 1 Unique test(s) ordered: 2 Medical Decision Making Level: 4 - Moderate documented in this encounter [facility] 08-08-2024 Telephone encounter Note Name of Caller: Cydney Contact Reason for Appointment: Patient canceled the 08/14/24 new patient appointment due to "an emergency." Will call back at a later date to reschedule. Office Name: ENT [facility] 08-08-2024 Miscellaneous Notes Name of Caller: Cydney Contact Reason for Appointment: Patient canceled the 08/14/24 new patient appointment due to "an emergency." Will call back at a later date to reschedule. Office Name: ENT documented in this encounter [facility] 08-08-2024 Telephone encounter Note S: Patient and her called the [facility] access center with complaint of ringing in the right ear and pain on the right side of her ear B: She was evaluated by an ENT in [place] and prescribed an antibiotic with no relief. Scanning was ordered, but she has not had anything done .Calling for a second opinion New patient appointment. Symptoms have been present for the past 4 weeks A: She has symptoms of ringing in her right ear and intermittent earache. Her is unaware of a fever. R: New patient appointment scheduled, insurance verified . Advised to go to ED for severe or persistent pain . Patient instructed to call back with worsening symptoms, concerns or questions. Reason for Disposition Ear is painful Protocols used: [id number] [facility] 08-08-2024 Miscellaneous Notes S: Patient and her called the clinical access center with complaint of ringing in the right ear and pain on the right side of her ear B: She was evaluated by an ENT in [place] and prescribed an antibiotic with no relief. Scanning was ordered, but she has not had anything done .Calling for a second opinion New patient appointment. Symptoms have been present for the past 4 weeks A: She has symptoms of ringing in her right ear and intermittent earache. Her is unaware of a fever. R: New patient appointment scheduled, insurance verified . Advised to go to ED for severe or persistent pain . Patient instructed to call back with worsening symptoms, concerns or questions. Reason for Disposition Ear is painful Protocols used: [id number] documented in this encounter [facility] 08-01-2024 Telephone encounter Note Patient would like the order for stool test placed like discussed patient wants to get the test done in [place] closer to home [facility] 08-01-2024 Miscellaneous Notes Patient would like the order for stool test placed like discussed patient wants to get the test done in [place] closer to home documented in this encounter [facility] 06-27-2024 Telephone encounter Note See other message [facility] 06-27-2024 Miscellaneous Notes See other message documented in this encounter [facility] 06-26-2024 Telephone encounter Note AVIVA: 06/15/2024 LDH: NOV: NDH: Tried to call patient, message sent. Should finish therapy later this week [facility] 06-26-2024 Miscellaneous Notes AVIVA: 06/15/2024 LDH: NOV: NDH: Tried to call patient, message sent. Should finish therapy later this week documented in this encounter [facility] 06-15-2024 Note HNO ID: [id number] Author: HAYLEY MEEKS LPN Service: ? Author Type: LICENSED NURSE Type: Progress Notes Filed: 06/15/2024 10:38 Note Text: Patient has been identified by name and date of Yes Patient denies being on any proton pump inhibitors (PPIs) such as Zegerid ? (omeprazole/sodium bicarbonate), Prilosec ? (omeprazole), Prilosec OTC ? (omeprazole), Prevacid ? (lansoprazole), Aciphex ? (rabeprazole), Protonix ? (pantoprazole), Nexium ? (esomeprazole), Kapidex ?, Dexilant ? (dexlansoprazole), and Axid ? (nizatidine) for 2 weeks prior to test Yes Patient denies being on bismuth preparations such as Kaopectate ?, Pepto-Bismol ? [place] Bism[place] ? and all generic forms for 2 weeks prior to test Yes Medications allowed before test: Topical antibiotics, Maalox, MOM, Gela-[place], TUMS, Maalox, Rolaids, Pepcid (Famotidine), Tagamet (Cimetadine), Zantac (Ranitidine) Patient denies being on antibiotics for 4 weeks prior to test Yes Patient has had nothing to eat or drink, has not chewed gum or smoked cigarettes at least 1 hour prior to test Yes Patient denies allergies to phenylanine (Aspartame) Yes If patient has reported "no" to any of the above, this test must be rescheduled. If patient has allergy to aspartame, the breath test is cancelled. Please obtain a stool order from provider for H. Pylori test. Patient instructed to inhale, hold their breath momentarily and then exhaled into the blue bag. Baseline sample collected Yes Patient able to drink Pranactin-Citric packet with water with the plastic straw without difficulty Yes Patient waited 15 minutes Yes Post dose breath sample collected in pink bag Yes Patient discharged. Samples sent to lab. [facility] 06-15-2024 History of Present illness Narrative Patient has been identified by name and date of Yes Patient denies being on any proton pump inhibitors (PPIs) such as Zegerid (omeprazole/sodium bicarbonate), Prilosec (omeprazole), Prilosec OTC (omeprazole), Prevacid (lansoprazole), Aciphex (rabeprazole), Protonix (pantoprazole), Nexium (esomeprazole), Kapidex , Dexilant (dexlansoprazole), and Axid (nizatidine) for 2 weeks prior to test Yes Patient denies being on bismuth preparations such as Kaopectate , Pepto-Bismol [place] Bism[place] and all generic forms for 2 weeks prior to test Yes Medications allowed before test: Topical antibiotics, Maalox, MOM, Gela-[place], TUMS, Maalox, Rolaids, Pepcid (Famotidine), Tagamet (Cimetadine), Zantac (Ranitidine) Patient denies being on antibiotics for 4 weeks prior to test Yes Patient has had nothing to eat or drink, has not chewed gum or smoked cigarettes at least 1 hour prior to test Yes Patient denies allergies to phenylanine (Aspartame) Yes If patient has reported "no" to any of the above, this test must be rescheduled. If patient has allergy to aspartame, the breath test is cancelled. Please obtain a stool order from provider for H. Pylori test. Patient instructed to inhale, hold their breath momentarily and then exhaled into the blue bag. Baseline sample collected Yes Patient able to drink Pranactin-Citric packet with water with the plastic straw without difficulty Yes Patient waited 15 minutes Yes Post dose breath sample collected in pink bag Yes Patient discharged. Samples sent to lab. Images from the original note were not included. DEPARTMENT OF GASTROENTEROLOGY AND HEPATOLOGY [facility] DEPARTMENT OF GASTROENTEROLOGY - NEW PATIENT/CONSULT Reason for visit My final recommendations will be communicated back to the requesting physician by the way of the shared medical record, fax, or via US Mail. The patient consented to the use of [employer] software for draft documentation of the visit consistent with [facility] s Notice of Privacy Practices. History of Present Illness Cydney Sullivan is a 33 year old female who is scheduled today at the request of for New Patient Evaluation (Eval for blood in stool from last week (hemorrhoids)/C/o abdominal pain ). Patient is a 33-year-old female presenting with hematochezia, abdominal pain, and dysuria. Approximately one week ago, patient noticed blood in her stool, prompting a visit to urgent care. She was diagnosed with hemorrhoids and prescribed a topical hydrocortisone cream 2.5%, which she applied twice daily. Since initiating treatment, she reports resolution of hematochezia but continues to experience abdominal pain. She was given pepcid as needed. She denies any history of constipation, straining, or pushing during bowel movements and describes her stools as normal in consistency. She denies any history of childbirth. Patient describes the abdominal pain as a burning sensation located above the umbilicus and in the lower back. The pain is intermittent and sometimes associated with food intake, particularly spicy foods. She reports a significant increase in pain after consuming a edison pickle, which led her to seek medical attention. She has since been eating a light diet consisting of pulses, rice, chapati, and vegetables, which she notes sometimes alleviates the pain. However, she experienced a burning sensation after eating papaya and poha this morning. She denies any history of similar symptoms prior to this episode. In addition to abdominal pain, patient reports a burning sensation during urination over the past two days. She underwent a urine test at urgent care, which was negative for infection. She denies any other medical history, surgeries, or current medications. She has been in the area for seven months and does not have a primary care physician. Patient denies any family history of gastrointestinal issues, including stomach, liver, pancreas, intestine, or colon problems. She mentions that her father experienced abdominal pain many years ago, but it was not severe enough to require hospitalization or ongoing medication. Past Diagnostic Results: - Urine Test (Last Week): Negative for infection. Review of Symptoms Trouble swallowing, heartburn, regurgitation, chest pain, early satiety, nausea, vomiting, abdominal pain, bloating, bloody stool, constipation, diarrhea, night sweats, fevers, or changes in weight. Negative for known history of IBD, colon cancer, gastric/ liver/ pancreas/ intestine issues in the family Constitutional: (-) fever Gastrointestinal: (+) epigastric abdominal pain, (+) epigastric burning, (+) mild nausea, (-) vomiting Genitourinary: (+) burning with urination Musculoskeletal: (-) joint pain, (-) leg swelling Skin: (-) rash Past Medical and Surgical History, Social and Family history, Medications list No past medical history on file. No past surgical history on file. No family history on file. Current Outpatient Medications Medication Sig Dispense Refill famotidine (PEPCID) 40 mg tablet omeprazole (PRILOSEC) 20 mg capsule Take 1 capsule by mouth once daily. 90 capsule 0 No current facility-administered medications for this visit. ALLERGIES Not on File Physical Examination BP 125/77 (BP Site: Right Arm, BP Position: Sitting, BP Cuff Size: Regular Adult) Pulse 97 Ht 162.6 cm (5' 4") Wt 61 kg (134 lb 7.7 oz) BMI 23.08 kg/m General Appearance: well appearing, alert, pleasant, in no acute distress Eyes: PERRLA, no scleral icterus Lungs:no accessory muscle use Heart: regular rate Abdomen: not distended, normal bowel sounds, soft and depressible, no guarding or rebound Rectal exam: Deferred Extremities: no edema Skin: warm and dry Neuro:alert, oriented x 3, moving extremities Recent labs, imaging and Endoscopy reviewed No data to display No data to display No results found for: "TSH" Impression 1. Epigastric pain (R10.13) Gastroesophageal reflux disease without esophagitis (K21.9) Epigastric pain with burning sensation, exacerbated by certain foods. No history of similar episodes. Differential includes GERD, H pylori gastritis. - Initiated omeprazole 20 mg orally once daily before breakfast on an empty stomach for 2 weeks. Can increase to twice a day if persistent symptoms. - Educated on dietary modifications to avoid spicy foods, alcohol, chocolate, and peppermint. - Ordered H. pylori breath test. Offered EGD, patient wants to watch and consider if persistent symptoms. - Scheduled follow-up in 4-6 weeks to reassess symptoms and discuss further diagnostic options if necessary. 2. Hematochezia (K92.1) Single episode of hematochezia with no associated constipation or straining. Hemorrhoids identified and treated with hydrocortisone cream 2.5% in urgent care. - Discussed potential need for colonoscopy to rule out other sources of bleeding. - Advised to monitor for recurrent bleeding. - Avoid constipation. Plan is to follow up in one month. or sooner if clinically indicated. I spent more than 40 minutes in the visit, with more than 50% of the total joca-vr-eqtz time of the visit in counseling / coordination of care. Alex Bautista MD Staff Wrecker Operator documented in this encounter [facility] 06-15-2024 Instructions Alex Bautista MD - 06/15/2024 10:24 AM EDT Images from the original note were not included. Gastroesophageal Reflux Disease (GERD) Heartburn is a burning sensation in the center of your chest that often occurs after you eat, bend over, exercise, and sometimes at night when you are lying down. Approximately one in 10 adults has heartburn at least once a week and one in three monthly. Some women experience heartburn almost daily as a result of increased pressure on the abdomen and hormonal changes. Despite its name, heartburn has nothing to do with your heart. Heartburn symptoms indicate a condition called gastroesophageal reflux disease, or GERD. This fact sheet offers some tips on how to relieve heartburn caused by this condition. What is GERD? When you swallow, food passes down your throat and through your esophagus to your stomach. A muscle called the lower esophageal sphincter controls the opening between the esophagus and the stomach. The muscle remains tightly closed except when you swallow food. When this muscle fails to close, the acid-containing contents of the stomach can travel back up into the esophagus. This backward movement is called reflux. When stomach acid enters the lower part of the esophagus, it can produce a burning sensation, commonly referred to as heartburn. Several factors might explain why this reflux action occurs and might offer some clues for relief. The most important are: The position of your body after eating (An upright posture helps prevent reflux.) The size of the meal (Smaller meals reduce reflux.) The nature of foods you consume (Certain substances that irritate the esophagus or weaken the sphincter can cause reflux.) How is GERD treated? To treat GERD, we recommend the following: Raise the head of your bed by six inches to allow gravity to help keep the stomach's contents in the stomach. (Do not use piles of pillows because this puts your body into a bent position that actually aggravates the condition by increasing pressure on the abdomen.) Eat meals at least three to four hours before lying down, and avoid bedtime snacks. Eat moderate portions of food and smaller meals. Maintain a healthy weight to eliminate unnecessary intra-abdominal pressure caused by extra pounds. Limit consumption of fatty foods, chocolate, peppermint, coffee, tea, kayli, and alcohol - all of which relax the lower esophageal sphincter. Also, avoid tomatoes and citrus fruits or juices, which contribute additional acid that can irritate the esophagus. Give up smoking, which also relaxes the lower esophageal sphincter. Wear loose belts and clothing. What if my GERD and heartburn persist? Many people will get relief from heartburn, and the pressure that goes with esophageal reflux, by following the tips above. Gbqr-igp-jcrehzn liquid antacids can also help in treating occasional heartburn. If your symptoms persist, do not respond to treatment, or occur often, you need to see a doctor for testing and treatment. A visual examination of the esophagus, known as an endoscopy, might be necessary. Sometimes this test shows that the lining of the esophagus is severely inflamed and irritated by stomach acid. This condition, known as esophagitis, might lead to bleeding and difficulty in swallowing. Medical treatment for this condition might be necessary. This usually involves blocking acid production in the stomach. Ries-gec-zihixsr medicines, such as Tums , Rolaids , Maalox , Zantac , Tagamet , Prilosec, ,Pepcid , and Axid , can generally relieve esophageal reflux symptoms. Patients with more severe symptoms or those who have been using antacids for more than two weeks should contact their doctors, who can prescribe medicines to control or eliminate acid, such as H2-receptor antagonists and proton pump inhibitors. Only a few people need surgery to correct the disorder. What is GERD? Gastroesophageal reflux disease (GERD) is a more serious form of gastroesophageal reflux (ANTONIO), which is common. ANTONIO occurs when the lower esophageal sphincter (LES) opens spontaneously, for varying periods of time, or does not close properly and stomach contents rise up into the esophagus. ANTONIO is also called acid reflux or acid regurgitation, because digestive juices--called acids--rise up with the food. The esophagus is the tube that carries food from the mouth to the stomach. The LES is a ring of muscle at the bottom of the esophagus that acts like a valve between the esophagus and stomach. When acid reflux occurs, food or fluid can be tasted in the back of the mouth. When refluxed stomach acid touches the lining of the esophagus it may cause a burning sensation in the chest or throat called heartburn or acid indigestion. Occasional ANTONIO is common and does not necessarily mean one has GERD. Persistent reflux that occurs more than twice a week is considered GERD, and it can eventually lead to more serious health problems. People of all ages can have GERD. What are the symptoms of GERD? The main symptom of GERD in adults is frequent heartburn, also called acid indigestion--burning-type pain in the lower part of the mid-chest, behind the breast bone, and in the mid-abdomen. Most children under 12 years with GERD, and some adults, have GERD without heartburn. Instead, they may experience a dry cough, asthma symptoms, or trouble swallowing. What causes GERD? The reason some people develop GERD is still unclear. However, research shows that in people with GERD, the LES relaxes while the rest of the esophagus is working. Anatomical abnormalities such as a hiatal hernia may also contribute to GERD. A hiatal hernia occurs when the upper part of the stomach and the LES move above the diaphragm, the muscle wall that separates the stomach from the chest. Normally, the diaphragm helps the LES keep acid from rising up into the esophagus. When a hiatal hernia is present, acid reflux can occur more easily. A hiatal hernia can occur in people of any age and is most often a normal finding in otherwise healthy people over age 50. Most of the time, a hiatal hernia produces no symptoms. Other factors that may contribute to GERD include obesity smoking Common foods that can worsen reflux symptoms include citrus fruits chocolate drinks with caffeine or alcohol fatty and fried foods garlic and onions mint flavorings spicy foods tomato-based foods, like spaghetti sauce, salsa, chili, and pizza sodas that contain caffeine chocolate peppermint spicy foods acidic foods like oranges, tomatoes, and pizza fried and fatty foods Avoiding food 2 to 3 hours before bed may also help. Your health care provider may recommend raising the head of your child s bed with wood blocks secured under the bedposts. Just using extra pillows will not help. If these changes do not work, your health care provider may prescribe medicine for your child. In rare cases, a child may need surgery. For information about ANTONIO in infants, children, and adolescents, see the Gastroesophageal Reflux in Infants and Gastroesophageal Reflux in Children and Adolescents fact sheets from the [employer] [place] of Diabetes and Digestive and Kidney Diseases (NIDDK). How is GERD treated? See your health care provider if you have had symptoms of GERD and have been using antacids or other rkhv-tob-mdbngpt reflux medications for more than 2 weeks. Your health care provider may refer you to a library science instructor, a doctor who treats diseases of the stomach and intestines. Depending on the severity of your GERD, treatment may involve one or more of the following lifestyle changes, medications, or surgery. Lifestyle Changes If you smoke, stop. Avoid foods and beverages that worsen symptoms. Lose weight if needed. Eat small, frequent meals. Wear loose-fitting clothes. Avoid lying down for 3 hours after a meal. Raise the head of your bed 6 to 8 inches by securing wood blocks under the bedposts. Just using extra pillows will not help. Medications Your health care provider may recommend dhcg-znm-bzuvgvo antacids or medications that stop acid production or help the muscles that empty your stomach. You can buy many of these medications without a prescription. However, see your health care provider before starting or adding a medication. Antacids, such as Gela-[place], Maalox, Mylanta, Rolaids, and Riopan, are usually the first drugs recommended to relieve heartburn and other mild GERD symptoms. Many brands on the market use different combinations of three basic salts--magnesium, calcium, and aluminum--with hydroxide or bicarbonate ions to neutralize the acid in your stomach. Antacids, however, can have side effects. Magnesium salt can lead to diarrhea, and aluminum salt may cause constipation. Aluminum and magnesium salts are often combined in a single product to balance these effects. Calcium carbonate antacids, such as Tums, Titralac, and Gela-2, can also be a supplemental source of calcium. They can cause constipation as well. Foaming agents, such as Gaviscon, work by covering your stomach contents with foam to prevent reflux. H2 blockers, such as cimetidine (Tagamet HB), famotidine (Pepcid AC), nizatidine (Axid AR), and ranitidine (Zantac 75), decrease acid production. They are available in prescription strength and efvz-llu-rzjtixc strength. These drugs provide short-term relief and are effective for about half of those who have GERD symptoms. Proton pump inhibitors include omeprazole (Prilosec, Zegerid), lansoprazole (Prevacid), pantoprazole (Protonix), rabeprazole (Aciphex), and esomeprazole (Nexium), which are available by prescription. Prilosec is also available in arca-svk-swjsiai strength. Proton pump inhibitors are more effective than H2 blockers and can relieve symptoms and heal the esophageal lining in almost everyone who has GERD. Prokinetics help strengthen the LES and make the stomach empty faster. This group includes bethanechol (Urecholine) and metoclopramide (Reglan). Metoclopramide also improves muscle action in the digestive tract. Prokinetics have frequent side effects that limit their usefulness--fatigue, sleepiness, depression, anxiety, and problems with physical movement. Because drugs work in different ways, combinations of medications may help control symptoms. People who get heartburn after eating may take both antacids and H2 blockers. The antacids work first to neutralize the acid in the stomach, and then the H2 blockers act on acid production. By the time the antacid stops working, the H2 missy will have stopped acid production. Your health care provider is the best source of information about how to use medications for GERD. What if GERD symptoms persist? If your symptoms do not improve with lifestyle changes or medications, you may need additional tests. Barium swallow radiograph uses x rays to help spot abnormalities such as a hiatal hernia and other structural or anatomical problems of the esophagus. With this test, you drink a solution and then x rays are taken. The test will not detect mild irritation, although strictures--narrowing of the esophagus--and ulcers can be observed. Upper endoscopy is more accurate than a barium swallow radiograph and may be performed in a hospital or a doctor s office. The doctor may spray your throat to numb it and then, after lightly sedating you, will slide a thin, flexible plastic tube with a light and lens on the end called an endoscope down your throat. Acting as a tiny camera, the endoscope allows the doctor to see the surface of the esophagus and search for abnormalities. If you have had moderate to severe symptoms and this procedure reveals injury to the esophagus, usually no other tests are needed to confirm GERD. The doctor also may perform a biopsy. Tiny tweezers, called forceps, are passed through the endoscope and allow the doctor to remove small pieces of tissue from your esophagus. The tissue is then viewed with a microscope to look for damage caused by acid reflux and to rule out other problems if infection or abnormal growths are not found. documented in this encounter [facility] 06-15-2024 Note HNO ID: [id number] Author: ALEX BAUTISTA MD Service: ? Author Type: Physician Type: Progress Notes Filed: 06/15/2024 10:34 Note Text: DEPARTMENT OF GASTROENTEROLOGY AND HEPATOLOGY [facility] DEPARTMENT OF GASTROENTEROLOGY - NEW PATIENT/CONSULT Reason for visit My final recommendations will be communicated back to the requesting physician by the way of the shared medical record, fax, or via US Mail. The patient consented to the use of ambient [employer] software for draft documentation of the visit consistent with [facility]?s Notice of Privacy Practices. History of Present Illness Cydney Sullivan is a 33 year old female who is scheduled today at the request of for New Patient Evaluation (Eval for blood in stool from last week (hemorrhoids)/C/o abdominal pain ). Patient is a 33-year-old female presenting with hematochezia, abdominal pain, and dysuria. Approximately one week ago, patient noticed blood in her stool, prompting a visit to urgent care. She was diagnosed with hemorrhoids and prescribed a topical hydrocortisone cream 2.5%, which she applied twice daily. Since initiating treatment, she reports resolution of hematochezia but continues to experience abdominal pain. She was given pepcid as needed. She denies any history of constipation, straining, or pushing during bowel movements and describes her stools as normal in consistency. She denies any history of childbirth. Patient describes the abdominal pain as a burning sensation located above the umbilicus and in the lower back. The pain is intermittent and sometimes associated with food intake, particularly spicy foods. She reports a significant increase in pain after consuming a edison pickle, which led her to seek medical attention. She has since been eating a light diet consisting of pulses, rice, chapati, and vegetables, which she notes sometimes alleviates the pain. However, she experienced a burning sensation after eating papaya and poha this morning. She denies any history of similar symptoms prior to this episode. In addition to abdominal pain, patient reports a burning sensation during urination over the past two days. She underwent a urine test at urgent care, which was negative for infection. She denies any other medical history, surgeries, or current medications. She has been in the area for seven months and does not have a primary care physician. Patient denies any family history of gastrointestinal issues, including stomach, liver, pancreas, intestine, or colon problems. She mentions that her father experienced abdominal pain many years ago, but it was not severe enough to require hospitalization or ongoing medication. Past Diagnostic Results: - Urine Test (Last Week): Negative for infection. Review of Symptoms Trouble swallowing, heartburn, regurgitation, chest pain, early satiety, nausea, vomiting, abdominal pain, bloating, bloody stool, constipation, diarrhea, night sweats, fevers, or changes in weight. Negative for known history of IBD, colon cancer, gastric/ liver/ pancreas/ intestine issues in the family Constitutional: (-) fever Gastrointestinal: (+) epigastric abdominal pain, (+) epigastric burning, (+) mild nausea, (-) vomiting Genitourinary: (+) burning with urination Musculoskeletal: (-) joint pain, (-) leg swelling Skin: (-) rash Past Medical and Surgical History, Social and Family history, Medications list No past medical history on file. No past surgical history on file. No family history on file. Current Outpatient Medications Medication Sig Dispense Refill famotidine (PEPCID) 40 mg tablet omeprazole (PRILOSEC) 20 mg capsule Take 1 capsule by mouth once daily. 90 capsule 0 No current facility-administered medications for this visit. ALLERGIES Not on File Physical Examination BP 125/77 (BP Site: Right Arm, BP Position: Sitting, BP Cuff Size: Regular Adult) Pulse 97 Ht 162.6 cm (5' 4") Wt 61 kg (134 lb 7.7 oz) BMI 23.08 kg/m? General Appearance: well appearing, alert, pleasant, in no acute distress Eyes: PERRLA, no scleral icterus Lungs:no accessory muscle use Heart: regular rate Abdomen: not distended, normal bowel sounds, soft and depressible, no guarding or rebound Rectal exam: Deferred Extremities: no edema Skin: warm and dry Neuro:alert, oriented x 3, moving extremities Recent labs, imaging and Endoscopy reviewed No data to display No data to display No results found for: "TSH" Impression 1. Epigastric pain (R10.13) Gastroesophageal reflux disease without esophagitis (K21.9) Epigastric pain with burning sensation, exacerbated by certain foods. No history of similar episodes. Differential includes GERD, H pylori gastritis. - Initiated omeprazole 20 mg orally once daily before breakfast on an empty stomach for 2 weeks. Can increase to twice a day if persistent symptoms. (more content not included)... [facility] Evaluation note Diagnosis Epigastric pain- Primary Abdominal pain, epigastric Gastroesophageal reflux disease without esophagitis Esophageal reflux Hematochezia Blood in stool [facility] noteNo assessment information availableWSuburban [facility] Work Phone: Evaluation note* Diagnosis Helicobacter pylori gastritis- Primary Helicobacter pylori (H. pylori) Possible examination or test, unconfirmed [facility] Diagnosis Referred otalgia of right ear- Primary Referred otogenic pain Tinnitus, right ear Referred otalgia of left ear Referred otogenic pain Migraine variant Variants of migraine, not elsewhere classified, without mention of intractable migraine without mention of status migrainosus [facility]* Diagnosis New onset headache- Primary Headache Vision disturbance Unspecified visual disturbance Migraine with persistent visual aura Tinnitus, bilateral Unspecified tinnitus Tingling of face Pulsatile tinnitus, right ear Thunderclap headache Headache Atypical facial pain Atypical face pain Ear pain, bilateral [facility] Diagnosis New onset headache Headache Vision disturbance Unspecified visual disturbance Migraine with persistent visual aura Tinnitus, bilateral Unspecified tinnitus Tingling of face Pulsatile tinnitus, right ear Thunderclap headache Headache Atypical facial pain Atypical face pain Ear pain, bilateral [facility] encounter [facility] for referral (narrative)No reason for referral information availableWSuburban Community [facility] Work Phone: Reason for visit Narrative* MRI/CT (Routine) - Closed Specialty Diagnoses / Procedures Referred By Contac t Referred To Contact [facility] Diagnoses New onset headache Vision disturbance Migraine with persistent visual aura Tinnitus, bilateral Tingling of face Pulsatile tinnitus, right ear Thunderclap headache Atypical facial pain Ear pain, bilateral Procedures MRI BRAIN WO/W IVCON MRI BRAIN BRAIN STEM W/O W/CONTRAST MATERIAL Ashley Topete, [address] [place] [address] Phone: tel: fax: [facility] [place] [id number] Referral ID Status Reason Start Date Expiration Date V isits Requested Visits Authorized [id number] Closed Auto-Generate d Referral 08/23/2024 09/22/2024 1 1 [facility] Summary Purpose Family History No Family History Records FoundNo Family History Records FoundNo Family History Records Found Advance Directives No Advanced Directives Records FoundNo Advanced Directives Records FoundNo Advanced Directives Records Found Additional Source Comments Source Comments (unrecognize d section and content) In the event this informatio n is protected by the Federal Confidentiality of Alcohol and Drug Abuse Patient Records regulations: The Federal rules restrict any use of the information to criminally investigate or prosecute any alcohol or drug abuse patient.[facility] the event this information is protected by the Federal Confidentiality of Alcohol and Drug Abuse Patient Records regulations: The Federal rules restrict any use of the information to criminally investigate or prosecute any alcohol or drug abuse patient.[facility] HospitalIn the event this information is protected by the Federal Confidentiality of Alcohol and Drug Abuse Patient Records regulations: The Federal rules restrict any use of the information to criminally investigate or prosecute any alcohol or drug abuse patient.[facility] HospitalIn the event this information is protected by the Federal Confidentiality of Alcohol and Drug Abuse Patient Records regulations: The Federal rules restrict any use of the information to criminally investigate or prosecute any alcohol or drug abuse patient.[facility] HospitalIn the event this information is protected by the Federal Confidentiality of Alcohol and Drug Abuse Patient Records regulations: The Federal rules restrict any use of the information to criminally investigate or prosecute any alcohol or drug abuse patient.[facility] HospitalIn the event this information is protected by the Federal Confidentiality of Alcohol and Drug Abuse Patient Records regulations: The Federal rules restrict any use of the information to criminally investigate or prosecute any alcohol or drug abuse patient.[facility] HospitalIn the event this information is protected by the Federal Confidentiality of Alcohol and Drug Abuse Patient Records regulations: The Federal rules restrict any use of the information to criminally investigate or prosecute any alcohol or drug abuse patient.[facility] HospitalIn the event this information is protected by the Federal Confidentiality of Alcohol and Drug Abuse Patient Records regulations: The Federal rules restrict any use of the information to criminally investigate or prosecute any alcohol or drug abuse patient.[facility] HospitalIn the event this information is protected by the Federal Confidentiality of Alcohol and Drug Abuse Patient Records regulations: The Federal rules restrict any use of the information to criminally investigate or prosecute any alcohol or drug abuse patient.[facility] HospitalIn the event this information is protected by the Federal Confidentiality of Alcohol and Drug Abuse Patient Records regulations: The Federal rules restrict any use of the information to criminally investigate or prosecute any alcohol or drug abuse patient.[facility] HospitalIn the event this information is protected by the Federal Confidentiality of Alcohol and Drug Abuse Patient Records regulations: The Federal rules restrict any use of the information to criminally investigate or prosecute any alcohol or drug abuse patient.[facility] Reason for Visit (unrecogniz ed section and content) Reason Comments New Patient Evaluation Eval for blood in stool from last week (hemorrhoids)C/o abdominal pain Reason Onset Date Comments Earache 08/08/2024 Reason Onset Date Comments Cancelled Appointment 08/08/2024 Reason Comments Consult Ear Problem Right ear tingling a nd ringing. 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 Daniel Reynolds MD Primary Care Provider Active Team Status: Inactive Member Role Status Dates Dr. Daniel Reynolds MD Primary Care Provider Active Start: July 12, 2024 End: July 12, 2024 Dr. Daniel Reynolds MD Attending Provider Active Start: July 12, 2024 End: July 12, 2024 Dr. Daniel Reynolds MD Referring Provider Active Start: July 12, 2024 End: July 12, 2024 Grain Miller Helper Relationship Specialty Start Date End Date Daniel Reynolds MD [address] [facility] [address] [place] [address] PCP - General Family Medicine 08/21/24 Goals (unrecognized section and content) Goals may be documented in a n alternate section INFORMATION SOURCE (unrecogn ized section and content) DATE CREATED AUTHOR 08/20/[address] [facility] DATE CREATED AUTHOR AUTHOR'S ORGANIZ ATION 11/17/2024 [facility] DATE CREATED AUTHOR AUTHOR'S ORGANIZ ATION 12/27/2024 [facility] FOR RECORDS PERTAINING TO PATIENTS WHO ARE OR HAVE BEEN ENROLLED IN A CHEMICAL DEPENDENCY/SUBSTANCEABUSE PROGRAM, SOME INFORMATION MAY BE OMITTED. This clinical summary was aggregated from multiple sources. Caution should be exercised in using it in the provision of clinical care. This summary normalizes information from multiple sources, and as a consequence, information in this document may materially change the coding, format and clinical context of patient data. In addition, data may be omitted in some cases. CLINICAL DECISIONS SHOULD BE BASED ON THE PRIMARY CLINICAL RECORDS. [facility] [employer] [facility] provides no warranty or guarantee of the accuracy or completeness of information in this document.
[2025-01-01 12:22] LABS: Hematocrit 33.3 % (37-47); Hemoglobin 11.7 g/dL (12.0-15.0); Immature Granulocytes Count 0.030 X10^3/uL (0.0-0.0); Mean Corp Hgb Conc 35.1 g/dL (32-36); Mean Corpuscular Volume 86.3 fL (81-99); Mean Platelet Vol. 10.7 fl (6.2-12.0); NRBC Flagged by Analyzer 0 % (0-5); Platelet Count 261 K/mm3 (150-450); RBC Distribution Width CV 13.0 % (11.6-14.6); RBC Distribution Width SD 40.1 fl (35.1-43.9); Red Blood Count 3.86 M/mm3 (4.2-5.4); White Blood Count 8.6 K/mm3 (4.4-11.0)
[2025-01-01 13:12] LABS: HIV Nonreactive (Nonreactive); Hepatitis B Surface Antigen Nonreactive (Nonreactive); Hepatitis C Antibody Nonreactive (Nonreactive); Syphilis Antibodies Nonreactive (Nonreactive)
[2025-01-02 19:08] LABS: Chlamydia By Nucleic Acid AMP Negative (Negative); Gonococcus By Nucleic Acid AMP Negative (Negative)
[2025-01-03 12:09] LABS: HPV APTIMA, High Risk Negative (Negative)
== END | disposition home or self-care (01) ==
PROVIDERS: PCP Family Medicine; Visit Provider Student in an Organized Health Care Education/Training Program
DX: O09.91 Supervision of high risk pregnancy, unspecified, first trimester (principal); Z78.9 Other specified health status; Z3A.00 Weeks of gestation of pregnancy not specified
CPT/HCPCS: 36415; 85025; 86703; 86762; 86780; 86787; 86803; 86850; 86900; 86901; 87340; 87491; 87591; 87624; 88175; G0145